=== PATIENT | male | born 1960 | race Caucasian/White ===

== ENCOUNTER 2019-09-20 09:58 | Inpatient (IN) | payer OTHER ==
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
--- NOTE | 2019-09-20 11:10 | HP ---
COWS - Scale Resting Pulse: 0= [place] 80 or Below Sweatin=Flushed/Facial Moisture Restless Observation: 0= Sits Still Pupil Size: 0= Normal to Room Light Bone or Joint Aches: 1= Mild Discomfort Runny Nose/ Eye Tearin= Nasal Congestion GI Upset > 30mins: 1= Stomach Cramp Tremor Observation: 2= Slight Tremor Visible Yawning Observation: 0= None Anxiety or Irritability: 2=Irritable/Anxious Goose Flesh Skin: 0=Smooth Skin COWS Score: 9 CIWA Score Nausea/Vomitin-Mild Nausea/No Vomiting Muscle Tremors: 3 Anxiety: 3 Agitation: 0-Normal Activity Paroxysmal Sweats: 2 Orientation: 2-Disoriented Date<2 days Tacttile Disturbances: 0-None Auditory Disturbances: 2-Mild Harshness/Frighten Visual Disturbances: 2-Mild Sensitivity Headache: 0-None Present CIWA-Ar Total Score: 15 - Admission Criteria [facility] Guidelines: Admission for Medically Managed Detox: Requires at least one of the followin. CIWA greater than 12 2. Seizures within the past 24 hours 3. Delirium tremens within the past 24 hours 4. Hallucinations within the past 24 hours 5. Acute intervention needed for co occurring medical disorder 6. Acute intervention needed for co occurring psychiatric disorder 7. Severe withdrawal that cannot be handled at a lower level of care (continued vomiting, continued diarrhea, abnormal vital signs) requiring intravenous medication and/or fluids 8. Patient presents the following: CIWA greater than 12 Admission Criteria Met: Admission criteria met Admitting History and Physical - Admission Chief Complaint: Patient is a 59 year old male with history of arthritis, back pain, depression, alcohol use disorder, opiate use disorder, cocaine dependence, presents for detox. History of Present Illness: Patient is a 59 year old male with history of arthritis, back pain, depression, alcohol use disorder, opiate use disorder, cocaine dependence, presents for detox. This is patient's first visit at this facility. Last detox approx one year ago at [facility] in [place]. Endorses prior rehab approx 5 years ago, does not recall facility. PMH: arthritis, sciaticca, back pain, ?hepatitis C (endorses he completed treatment) PSH: denies Social: lives with mother in apartment, in [place]. Psych: depression Legal: denies - Substance Use History Alcohol Substance amount: 1-2 pints Vodka Frequency of use: Daily Substance route: Oral Date of Last Use: 09/19/19 Heroin Substance amount: 1-2 bundles Frequency of use: Daily Substance route: Inhalation (ex: sniffing or snorting), Injection (ex: intravenous or skin popping) Date of Last Use: 09/19/19 Cocaine- Powder Substance amount: $100 Frequency of use: Daily Substance route: Inhalation (ex: sniffing or snorting), Injection (ex: intravenous or skin popping) Date of Last Use: 09/19/19 OxyContin Substance amount: 10 mg Frequency of use: Daily Substance route: Oral (t-1) History Source: Patient Limitations to Obtaining History: No Limitations - Past Medical History Musculoskeletal: Yes: Other (Arthritis, Sciattica) - Past Surgical History Past Surgical History: Yes: None - Smoking History Smoking history: Current every day smoker Have you smoked in the past 12 months: Yes Aproximately how many cigarettes per day: 10 - Alcohol/Substance Use Hx Alcohol Use: Yes History of Substance Use: reports: Cocaine, Heroin, Tranquilizers - Social History Usual Living Arrangement: Yes: With Parent History of Recent Travel: No Admission ROS [facility] - [facility] Chief Complaint: Patient is a 59 year old male with history of arthritis, back pain, depression, alcohol use disorder, opiate use disorder, cocaine dependence, presents for detox. Exam Limitations: No Limitations - Ebola screening Have you traveled outside of the country in the last 21 days: No Have you been sick,other than usual withdrawal symptoms: No Do you have a fever: No - Review of Systems Constitutional: No Symptoms Reported EENT: denies: Blurred Vision, Hearing Loss Respiratory: denies: Cough, Shortness of Breath Cardiac: denies: Chest Pain, Palpitations GI: denies: Nausea, Vomiting, Abdominal cramping : denies: Burning, Dysuria Musculoskeletal: reports: Back Pain (chronic) Integumentary: denies: Lesions, Rash Neuro: reports: Other (diffuse myalgias). denies: Numbness Hematology: denies: Blood Clots, Easy Bleeding Psychiatric: reports: Depressed, other (denies suicidal/ homicidal ideation) Patient History - Patient Medical History Hx Anemia: No Hx Asthma: No Hx Chronic Obstructive Pulmonary Disease (COPD): No Hx Cancer: No Hx Cardiac Disorders: No Hx Congestive Heart Failure: No Hx Hypertension: No Hx Hypercholesterolemia: No Hx Pacemaker: No HX Cerebrovascular Accident: No Hx Seizures: Yes (secondary to withdrawal) Hx Dementia: No Hx Diabetes: No Hx Gastrointestinal Disorders: No Hx Liver Disease: No Hx Genitourinary Disorders: No Hx Sexually Transmitted Disorders: Yes (syphillis) Hx Renal Disease (ESRD): No Hx Thyroid Disease: No Hx Human Immunodeficiency Virus (HIV): No Hx Hepatitis C: Yes (received treatment) Hx Depression: Yes Hx Suicide Attempt: Yes (2017, IV drug overdose) Hx Bipolar Disorder: No Hx Schizophrenia: No - Patient Surgical History Past Surgical History: No - PPD History Previous Implant?: Yes Documented Results: Negative w/o proof Implanted On Prior [facility] Admission?: No PPD to be Administered?: Yes - Reproductive History Patient is a Female of Child Bearing Age (11 -55 yrs old): No - Smoking Cessation Smoking history: Current every day smoker Have you smoked in the past 12 months: Yes Aproximately how many cigarettes per day: 10 Hx Chewing Tobacco Use: No Initiated information on smoking cessation: Yes 'Breaking Loose' booklet given: 09/20/19 - Substance & Tx. History Hx Alcohol Use: Yes Hx Substance Use: Yes Substance Use Type: Alcohol, Cocaine, Heroin, Opiates, Tranquilizers Hx Substance Use Treatment: Yes - Substances abused Alcohol Substance route: Oral Frequency: Daily Amount used: 1-2 pint vodka Age of first use: 15 Date of last use: 09/19/19 Heroin Substance route: Injection Frequency: Daily Amount used: 1-2 bundles Age of first use: 16 Date of last use: 09/19/19 Cocaine Substance route: Smoking Frequency: Daily Amount used: $100 Age of first use: 16 Date of last use: 09/19/19 Oxycontin Substance route: Oral Frequency: 1-3 times last 30 days Amount used: 10mg Age of first use: 59 Date of last use: 09/19/19 Admission Physical Exam BHS - Physical General Appearance: Yes: Within Normal Limits, Other (left eyelid sliht drooping compared to right- patient believes this is chronic finding.) HEENTM: Yes: EOMI, Normocephalic, MERRILL Respiratory: Yes: Normal Breath Sounds, No Respiratory Distress, No Accessory Muscle Use Neck: Yes: Supple Breast: Yes: Breast Exam Deferred Cardiology: Yes: Regular Rhythm, Regular Rate, S1, S2 Abdominal: Yes: Normal Bowel Sounds, Non Tender, Flat, Soft Extremities: Yes: Within Normal Limits, Normal Range of Motion Neurological: Yes: Within Normal Limits, Alert, Normal Response Integumentary: Yes: Dry, Warm - Diagnostic (1) Alcohol dependence with withdrawal, uncomplicated Current Visit: Yes Status: Acute (2) Opioid dependence with withdrawal Current Visit: Yes Status: Acute (3) Cocaine dependence Current Visit: No Status: Chronic Qualifiers: Substance use status: uncomplicated Qualified Code(s): F14.20 - Cocaine dependence, uncomplicated (4) Benzodiazepine abuse Current Visit: No Status: Chronic (5) Nicotine dependence Current Visit: No Status: Chronic Qualifiers: Nicotine product type: cigarettes Substance use status: uncomplicated Qualified Code(s): F17.210 - Nicotine dependence, cigarettes, uncomplicated (6) Depression Current Visit: No Status: Chronic Qualifiers: Depression Type: unspecified Qualified Code(s): F32.9 - Major depressive disorder, single episode, unspecified Cleared for Admission [facility] - Detox or Rehab [facility] Level of Care: Medically Managed Detox Regimen/Protocol: Methadone/Librium Claeared for Rehab Admission: No Screened but not Admitted - Documentation of Visit Screened but not Admitted: No Breathalyzer - Breathalyzer Breathalyzer: 0 Urine Drug Screen - Test Device Lot number: [id number] Expiration date: 09/09/21 - Control Is test valid?: Yes - Results Drug screen NEGATIVE: No Urine drug screen results: NAIN-Cocaine, FEN-Fentanyl, MOP-Opiates, OXY- Oxycodone, MTD-Methadone, BZO-Benzodiazepines Inpatient Rehab Admission - Rehab Decision to Admit Inpatient rehab admission?: No
[2019-09-20] MEDS ORDERED: BISMUTH SUBSALICYLATE 262 MG/15 ML BTL PO PRN (11:23)
[2019-09-20] MEDS ORDERED: ONDANSETRON *ODT* 4 MG TABLET SL PRN (11:26)
[2019-09-20] MEDS ORDERED: cloNIDine HCL 0.1 MG TABLET PO PRN (11:26)
[2019-09-20] MEDS ORDERED: METHOCARBAMOL 500 MG TABLET PO PRN (11:26)
[2019-09-20] MEDS ORDERED: chlordiazePOXIDE HCL 25 MG CAPSULE PO PRN (11:26)
[2019-09-20] MEDS ORDERED: MENTHOL/PHENOL 1 EACH UD MM PRN (11:26)
[2019-09-20] MEDS ORDERED: NICOTINE POLACRILEX 2 MG GUM BUC PRN (11:26)
[2019-09-20] MEDS ORDERED: ACETAMINOPHEN 325 MG TABLET (FP) PO PRN (11:26)
[2019-09-20] MEDS ORDERED: MAG HYDROX/AL HYDROX/SIMETH 30 ML UNIT-DOSE CUP PO PRN (11:26)
[2019-09-20] MEDS ORDERED: METHADONE HCL 10 MG TABLET (FOR DETOX USE ONLY) PO ONE (11:26)
[2019-09-20] MEDS ORDERED: MAGNESIUM CITRATE 300 ML BOTTLE PO PRN (11:26)
[2019-09-20 11:39] VITALS: BMI 28.7
[2019-09-20] MEDS: NICOTINE 14 MG/24 HOURS TOPICAL PATCH TD SCH (12:40)
[2019-09-20] MEDS: hydrOXYzine PAMOATE 25 MG CAPSULE (FP) PO SCH ×3 (14:21→22:04)
[2019-09-20 15:13] LABS: HEMATOCRIT 27.3 % (35.4-49); HEMOGLOBIN 8.7 GM/dL (11.7-16.9); MCH 23.4 pg (25.7-33.7); MCHC 31.8 g/dl (32.0-35.9); MEAN CELL VOLUME 73.7 fl (80-96); MEAN PLT VOLUME 8.4 fl (7.5-11.1); PLATELET COUNT 283 K/MM3 (134-434); RBC 3.71 M/mm3 (4.00-5.60); WHITE BLOOD COUNT 3.8 K/mm3 (4.0-10.0)
[2019-09-20 15:26] LABS: ALBUMIN 3.3 g/dl (3.4-5.0); BILIRUBIN,TOTAL 0.8 mg/dL (0.2-1); BLOOD UREA NITROGEN 18.8 mg/dL (7-18); CALCIUM 8.8 mg/dL (8.5-10.1); CREATININE 0.8 mg/dL (0.55-1.3); POTASSIUM 3.9 mmol/L (3.5-5.1); TOT PROT 8.2 g/dl (6.4-8.2)
--- NOTE | 2019-09-20 15:35 | PN ---
Teaching Attending Note Name of Resident: Tree Damon ATTENDING PHYSICIAN STATEMENT I saw and evaluated the patient. I reviewed the resident's note and discussed the case with the resident. I agree with the resident's findings and plan as documented. SUBJECTIVE: OBJECTIVE: ASSESSMENT AND PLAN: 1. Alcohol use disorder, in withdrawal 2. Opioid use disoder, in withdrawal Plan 1. Librium detox protocol 2. Methadone detox protocol
--- NOTE | 2019-09-20 15:46 | EKG ---
Test Reason : Blood Pressure : / mmHG Vent. Rate : 055 BPM Atrial Rate : 055 BPM P-R Int : 178 ms QRS Dur : 094 ms QT Int : 442 ms P-R-T Axes : 051 025 040 degrees QTc Int : 422 ms SINUS BRADYCARDIA MODERATE VOLTAGE CRITERIA FOR LVH, MAY BE NORMAL VARIANT BORDERLINE ECG NO PREVIOUS ECGS AVAILABLE Confirmed by RANDI MORA MD ([id number]) on 09/20/2019 3:46:27 PM Referred By: Confirmed By:RANDI MORA MD
[2019-09-20] MEDS: chlordiazePOXIDE HCL 25 MG CAPSULE PO SCH ×2 (17:27→22:03)
[2019-09-20] MEDS: IBUPROFEN 400 MG TABLET (FP) PO PRN (22:01)
[2019-09-20] MEDS: THIAMINE HCL 100 MG TABLET (FP) PO SCH (22:04)
[2019-09-20] MEDS: MELATONIN 5 MG TABLETS PO SCH (22:06)
[2019-09-21] MEDS: chlordiazePOXIDE HCL 25 MG CAPSULE PO SCH ×4 (06:25→23:15)
[2019-09-21] MEDS: hydrOXYzine PAMOATE 25 MG CAPSULE (FP) PO SCH ×2 (06:25→11:06)
[2019-09-21] MEDS ORDERED: METHADONE HCL 5 MG TABLET (FOR DETOX USE ONLY) ONE (09:48)
[2019-09-21] MEDS ORDERED: METHADONE HCL 10 MG TABLET (FOR DETOX USE ONLY) ONE (09:48)
[2019-09-21] MEDS ORDERED: METHADONE (DETOX) 20 MG, METHADONE (DETOX) 5 MG PO ONE (10:00)
[2019-09-21] MEDS: NICOTINE 14 MG/24 HOURS TOPICAL PATCH TD SCH (11:06)
[2019-09-21] MEDS: PRENATAL VITAMINS W/ FOLIC ACID TABLET (FP) PO SCH (11:06)
[2019-09-21] MEDS: MAGNESIUM HYDROX 2400MG/30ML ORAL SUSPENSION 30 ML CUP PO PRN ×2 (11:07→19:39)
--- NOTE | 2019-09-21 11:44 | PN ---
[facility] CIWA - CIWA Score Nausea/Vomitin-No Nausea/No Vomiting Muscle Tremors: None Anxiety: 3 Agitation: 1-Slight > Activity Paroxysmal Sweats: 3 Orientation: 0-Oriented Tacttile Disturbances: 0-None Auditory Disturbances: 0-None Visual Disturbances: 0-None Headache: 2-Mild CIWA-Ar Total Score: 9 S COWS - Scale Resting Pulse: 1= [place] 81-100 Sweatin= Beads of Sweat on Face Restless Observation: 1= Difficult to Sit Still Pupil Size: 0= Normal to Room Light Bone or Joint Aches: 2= Severe Diffuse Aches Runny Nose/ Eye Tearin= None GI Upset > 30mins: 0= None Tremor Observation of Outstretched Hands: 0= None Yawning Observation: 1= 1-2x During Session Anxiety or Irritability: 2=Irritable/Anxious Goose Flesh Skin: 0=Smooth Skin COWS Score: 10 S Progress Note (SOAP) Subjective: c/o sweats, anxiety, irritability, headache, and muscle aches. Objective: 09/21/19 11:43 Vital Signs 09/21/19 09/21/19 05:57 11:07 Temperature 97.8 F 97.1 F L Pulse Rate 72 59 L Respiratory 18 18 Rate Blood Pressure 117/64 134/76 O2 Sat by Pulse 97 Oximetry (%) Laboratory Last Values WBC 3.8 K/mm3 (4.0-10.0) L 09/20/19 11:20 RBC 3.71 M/mm3 (4.00-5.60) L 09/20/19 11:20 Hgb 8.7 GM/dL (11.7-16.9) L 09/20/19 11:20 Hct 27.3 % (35.4-49) L 09/20/19 11:20 MCV 73.7 fl (80-96) L 09/20/19 11:20 MCH 23.4 pg (25.7-33.7) L 09/20/19 11:20 MCHC 31.8 g/dl (32.0-35.9) L 09/20/19 11:20 RDW 18.0 % (11.9-15.9) H 09/20/19 11:20 Plt Count 283 K/MM3 (134-434) 09/20/19 11:20 MPV 8.4 fl (7.5-11.1) 09/20/19 11:20 Sodium 137 mmol/L (136-145) 09/20/19 11:20 Potassium 3.9 mmol/L (3.5-5.1) 09/20/19 11:20 Chloride 104 mmol/L (98-107) 09/20/19 11:20 Carbon Dioxide 25 mmol/L (21-32) 09/20/19 11:20 Anion Gap 8 MMOL/L (8-16) 09/20/19 11:20 BUN 18.8 mg/dL (7-18) H 09/20/19 11:20 Creatinine 0.8 mg/dL (0.55-1.3) 09/20/19 11:20 Est GFR (CKD-EPI)AfAm 112.53 09/20/19 11:20 Est GFR (CKD-EPI)NonAf 97.10 09/20/19 11:20 Random Glucose 96 mg/dL (74-106) 09/20/19 11:20 Calcium 8.8 mg/dL (8.5-10.1) 09/20/19 11:20 Total Bilirubin 0.8 mg/dL (0.2-1) 09/20/19 11:20 AST 38 U/L (15-37) H 09/20/19 11:20 ALT 21 U/L (13-61) 09/20/19 11:20 Alkaline Phosphatase 57 U/L (45-117) 09/20/19 11:20 Total Protein 8.2 g/dl (6.4-8.2) 09/20/19 11:20 Albumin 3.3 g/dl (3.4-5.0) L 09/20/19 11:20 Syphilis Serology Reactive (NONREACTIVE) A* 09/20/19 11:20 COVID-19 (EDUARD) Not detected (Not Detected) 09/20/19 12:45 HIV Ag/Ab Combo Qual Negative (NEGATIVE) 09/20/19 12:00 Labs noted. Assessment: 09/21/19 11:44 AOX3 and in no acute respiratory distress. Full ROM, ambulating in the unit. Withdrawal symptoms. Plan: continue detox.
[2019-09-21] MEDS ORDERED: hydrOXYzine PAMOATE 25 MG CAPSULE (FP) PO PRN (12:32)
--- NOTE | 2019-09-21 14:18 | CONSULT ---
[facility] Psychiatric Consult - Data Date of interview: 09/21/19 Admission source: [facility] Identifying data: First visit to [facility] and admission to [address] [place] [address] for this 59 y/o male self-referred for detoxification treatment. MATTHIEU issues : heroin, cocaine, alcohol, nicotine. Patient is single, no dependents, domiciled, disabled (uses a cane for ambulation) and supported on [facility] benefits. Substance Abuse History: Discussed with the patient. MATTHIEU profile as follows : Alcohol. Substance amount: 1-2 pints Vodka. Frequency of use: Daily. Substance route: Oral. Date of Last Use: 09/19/19. Heroin. Substance amount: 1-2 bundles. Frequency of use: Daily. Substance route: Inhalation (ex: sniffing or snorting), Injection (ex: intravenous or skin popping). Date of Last Use: 09/19/19. Cocaine- Powder. Substance amount: $100. Frequency of use: Daily. Substance route: Inhalation (ex: sniffing or snorting), Injection (ex: intravenous or skin popping). Date of Last Use: 09/19/19. OxyContin. Substance amount: 10 mg. Frequency of use: Daily. Substance route: Oral (t-1). History Source: Patient. Limitations to Obtaining History: No Limitations. Smoking history: Current every day smoker. Have you smoked in the past 12 karen hs: Yes. Aproximately how many cigarettes per day: 10. Hx Chewing Tobacco Use: No. Initiated information on smoking cessation: Yes. 'Breaking Loose' booklet given: 09/20/19. - Substance & Tx. History. Hx Alcohol Use: Yes. Hx Substance Use: Yes. Substance Use Type: Alcohol, Cocaine, Heroin, Opiates, Tranquilizers. Hx Substance Use Treatment: Yes. - Substances abused. Alcohol. Substance route: Oral. Frequency: Daily. Amount used: 1-2 pint vodka. Age of first use: 15. Date of last use: 09/19/19. Heroin. Substance route: Injection. Frequency: Daily. Amount used: 1-2 bundles. Age of first use: 16. Date of last use: 09/19/19. Cocaine. Substance route: Smoking. Frequency: Daily. Amount used: $100. Age of first use: 16. Date of last use: 09/19/19. Oxycontin. Substance route: Oral. Frequency: 1-3 times last 30 days. Amount used: 10mg. Age of first use: 59. Date of last use: 09/19/19. History of multiple MATTHIEU treatment failures. Medical History: Medical history is remarkable for syphillis, hepatitis C (treated), chronic lumbar pain and distant antecedent of withdrawal-related seizures. No known allergies. Psychiatric History: Patient denies history of psychiatric hospitalizations, OPD care or suicide attempts. Physical/Sexual Abuse/Trauma History: Patient denies. Additional Comment: Urine drug screen results: NAIN-Cocaine, FEN-Fentanyl, MOP- Opiates, OXY-Oxycodone, MTD-Methadone, BZO-Benzodiazepines. Noted. Mental Status Exam - Mental Status Exam Alert and Oriented to: Time, Place, Person Cognitive Function: Good Patient Appearance: Unkempt, Disheveled Mood: Withdrawn Affect: Mood Congruent, Constricted Patient Behavior: Fatigued, Appropriate, Cooperative Speech Pattern: Clear, Appropriate Voice Loudness: Normal Thought Process: Intact, Goal Oriented Thought Disorder: Not Present Hallucinations: Denies Suicidal Ideation: Denies Homicidal Ideation: Denies Insight/Judgement: Poor Sleep: Well Appetite: Good Gait/Station: Other (not out of bed in headline writer's presence; cane noted at bedside) Psychiatric Findings - Problem List (Sims 1, 2,3) (1) Alcohol dependence with withdrawal, uncomplicated Current Visit: Yes Status: Acute (2) Opioid dependence with withdrawal Current Visit: Yes Status: Acute (3) Benzodiazepine abuse Current Visit: Yes Status: Chronic (4) Cocaine dependence Current Visit: Yes Status: Chronic Qualifiers: Substance use status: uncomplicated Qualified Code(s): F14.20 - Cocaine dependence, uncomplicated (5) Nicotine dependence Current Visit: Yes Status: Chronic Qualifiers: Nicotine product type: cigarettes Substance use status: uncomplicated Qualified Code(s): F17.210 - Nicotine dependence, cigarettes, uncomplicated - Initial Treatment Plan Initial Treatment Plan: Psychoeducation. Sleep hygiene. Detoxification. Support. Observation.
[2019-09-21] MEDS: THIAMINE HCL 100 MG TABLET (FP) PO SCH (23:14)
[2019-09-21] MEDS: MELATONIN 5 MG TABLETS PO SCH (23:14)
[2019-09-22] MEDS: chlordiazePOXIDE HCL 25 MG CAPSULE PO SCH ×4 (06:12→23:21)
[2019-09-22] MEDS: IBUPROFEN 400 MG TABLET (FP) PO PRN (06:14)
[2019-09-22] MEDS ORDERED: METHADONE HCL 10 MG TABLET (FOR DETOX USE ONLY) PO ONE (10:00)
[2019-09-22] MEDS: NICOTINE 14 MG/24 HOURS TOPICAL PATCH TD SCH (10:51)
[2019-09-22] MEDS: PRENATAL VITAMINS W/ FOLIC ACID TABLET (FP) PO SCH (10:52)
[2019-09-22] MEDS: ACETAMINOPHEN 325 MG TABLET (FP) PO PRN (10:55)
--- NOTE | 2019-09-22 14:05 | PN ---
S CIWA - CIWA Score Nausea/Vomitin-Mild Nausea/No Vomiting Muscle Tremors: 2 Anxiety: 2 Agitation: 1-Slight > Activity Paroxysmal Sweats: No Perspiration Orientation: 0-Oriented Tacttile Disturbances: 0-None Auditory Disturbances: 0-None Visual Disturbances: 2-Mild Sensitivity Headache: 0-None Present CIWA-Ar Total Score: 8 S COWS - Scale Resting Pulse: 0= [place] 80 or Below Sweatin= Chills/Flushing Restless Observation: 0= Sits Still Pupil Size: 1= Pupils >than Normal Bone or Joint Aches: 1= Mild Discomfort Runny Nose/ Eye Tearin= None GI Upset > 30mins: 1= Stomach Cramp Tremor Observation of Outstretched Hands: 2= Slight Tremor Visible Yawning Observation: 0= None Anxiety or Irritability: 2=Irritable/Anxious Goose Flesh Skin: 0=Smooth Skin COWS Score: 8 [facility] Progress Note (SOAP) Subjective: 59 years old male first detox admission to [facility] was admitted on 09/20/19 for alcohol and opiate withdrawal sx management ambulating with cane slow steady ate breakfast in room unable to eat lunch due to right inguinal hernia 10/10 [address] mr mallory states that the pain began "months" ago gradually increase pain had "little" bowel movement this morning current pain is "unbearable" right inguinal hernia protrusion unable to manually reduced due to tenderness mr mallory states that "I want the surgery" case discussed with the nurse ER evaluation is necessary at this time information provided to Dr Francis Objective: 09/22/19 14:29 Vital Signs - 24 hr 09/21/19 09/21/19 09/21/19 16:58 18:56 20:44 Temperature 98 F 97.3 F L Pulse Rate 45 L 60 56 L Respiratory 17 18 18 Rate Blood Pressure 101/55 L 135/81 O2 Sat by Pulse 99 Oximetry (%) 09/22/19 09/22/19 09/22/19 07:23 08:41 13:06 Temperature 97.7 F 97.1 F L 97.6 F Pulse Rate 51 L 58 L 54 L Respiratory 16 18 18 Rate Blood Pressure 121/76 141/77 146/82 O2 Sat by Pulse 97 99 Oximetry (%) Laboratory Tests 09/20/19 09/20/19 09/20/19 11:20 11:20 11:20 WBC 3.8 L RBC 3.71 L Hgb 8.7 L Hct 27.3 L MCV 73.7 L MCH 23.4 L MCHC 31.8 L RDW 18.0 H Plt Count 283 MPV 8.4 Sodium 137 Potassium 3.9 Chloride 104 Carbon Dioxide 25 Anion Gap 8 BUN 18.8 H Creatinine 0.8 Est GFR (CKD-EPI)AfAm 112.53 Est GFR (CKD-EPI)NonAf 97.10 Random Glucose 96 Calcium 8.8 Total Bilirubin 0.8 AST 38 H ALT 21 Alkaline Phosphatase 57 Total Protein 8.2 Albumin 3.3 L Syphilis Serology Reactive A* RPR Titer COVID-19 (EDUARD) HIV Ag/Ab Combo Qual 09/20/19 09/20/19 09/20/19 11:20 12:00 12:45 WBC RBC Hgb Hct MCV MCH MCHC RDW Plt Count MPV Sodium Potassium Chloride Carbon Dioxide Anion Gap BUN Creatinine Est GFR (CKD-EPI)AfAm Est GFR (CKD-EPI)NonAf Random Glucose Calcium Total Bilirubin AST ALT Alkaline Phosphatase Total Protein Albumin Syphilis Serology RPR Titer Reactive 1:1 H COVID-19 (EDUARD) Not detected HIV Ag/Ab Combo Qual Negative anemia ferrous sulfate syphilis contacted treated Assessment: 09/22/19 14:32 alcohol and opiate withdrawal Plan: librium and methadone regiments
[2019-09-22] MEDS: FERROUS SO4 325 MG TABLET (FP) PO SCH (18:21)
[2019-09-22] MEDS: THIAMINE HCL 100 MG TABLET (FP) PO SCH (23:22)
[2019-09-22] MEDS: MELATONIN 5 MG TABLETS PO SCH (23:26)
[2019-09-23] MEDS ORDERED: chlordiazePOXIDE HCL 10 MG CAPSULE PO PRN
[2019-09-23] MEDS: chlordiazePOXIDE HCL 10 MG CAPSULE PO SCH ×4 (06:38→22:51)
[2019-09-23] MEDS: IBUPROFEN 400 MG TABLET (FP) PO PRN ×2 (06:40→20:13)
[2019-09-23] MEDS: FERROUS SO4 325 MG TABLET (FP) PO SCH ×2 (07:33→18:08)
[2019-09-23] MEDS ORDERED: METHADONE HCL 5 MG TABLET (FOR DETOX USE ONLY) ONE (09:53)
[2019-09-23] MEDS ORDERED: METHADONE HCL 10 MG TABLET (FOR DETOX USE ONLY) ONE (09:53)
[2019-09-23] MEDS ORDERED: METHADONE (DETOX) 10 MG, METHADONE (DETOX) 5 MG PO ONE (10:00)
[2019-09-23] MEDS: NICOTINE 14 MG/24 HOURS TOPICAL PATCH TD SCH (10:48)
[2019-09-23] MEDS: PRENATAL VITAMINS W/ FOLIC ACID TABLET (FP) PO SCH (10:48)
--- NOTE | 2019-09-23 11:54 | PN ---
[facility] CIWA - CIWA Score Nausea/Vomitin-Mild Nausea/No Vomiting Muscle Tremors: 1-None Visible, but [place] Anxiety: 1-Mildly Anxious Agitation: 0-Normal Activity Paroxysmal Sweats: No Perspiration Orientation: 0-Oriented Tacttile Disturbances: 1-Very Mild Itch/Numbness Auditory Disturbances: 0-None Visual Disturbances: 1-Very Mild Sensitivity Headache: 0-None Present CIWA-Ar Total Score: 5 S COWS - Scale Resting Pulse: 0= SD 80 or Below Sweatin= No chills or Flushing Restless Observation: 0= Sits Still Pupil Size: 1= Pupils >than Normal Bone or Joint Aches: 1= Mild Discomfort Runny Nose/ Eye Tearin= None GI Upset > 30mins: 1= Stomach Cramp Tremor Observation of Outstretched Hands: 1= Tremor [place], Not Seen Yawning Observation: 0= None Anxiety or Irritability: 1=Feels Anxious/Irritable Goose Flesh Skin: 0=Smooth Skin COWS Score: 5 S Progress Note (SOAP) Subjective: 59 years old male admitted on 09/20/19 for alcohol and opiate withdrawal sx management treating with librium and methadone detox regiment ambulating with cane from bed to bathroom slow steady mr mallory was angry that he been sent back so soon no surgery no morphine due to ct negative acute process to left inguinal hernia strong recommend mr mallory return to surgeon after detox completed Objective: 09/23/19 11:58 Vital Signs - 24 hr 09/22/19 09/22/19 09/23/19 13:06 22:29 06:52 Temperature 97.6 F 97.3 F L 97.1 F L Pulse Rate 54 L 49 L 54 L Respiratory 18 17 18 Rate Blood Pressure 146/82 153/76 118/70 O2 Sat by Pulse 99 100 98 Oximetry (%) 09/23/19 08:46 Temperature 97.3 F L Pulse Rate 55 L Respiratory 16 Rate Blood Pressure 131/67 O2 Sat by Pulse Oximetry (%) Laboratory Tests 09/20/19 09/20/19 09/20/19 11:20 11:20 11:20 WBC 3.8 L RBC 3.71 L Hgb 8.7 L Hct 27.3 L MCV 73.7 L MCH 23.4 L MCHC 31.8 L RDW 18.0 H Plt Count 283 MPV 8.4 Sodium 137 Potassium 3.9 Chloride 104 Carbon Dioxide 25 Anion Gap 8 BUN 18.8 H Creatinine 0.8 Est GFR (CKD-EPI)AfAm 112.53 Est GFR (CKD-EPI)NonAf 97.10 Random Glucose 96 Calcium 8.8 Total Bilirubin 0.8 AST 38 H ALT 21 Alkaline Phosphatase 57 Total Protein 8.2 Albumin 3.3 L Syphilis Serology Reactive A* RPR Titer COVID-19 (EDUARD) HIV Ag/Ab Combo Qual 09/20/19 09/20/19 09/20/19 11:20 12:00 12:45 WBC RBC Hgb Hct MCV MCH MCHC RDW Plt Count MPV Sodium Potassium Chloride Carbon Dioxide Anion Gap BUN Creatinine Est GFR (CKD-EPI)AfAm Est GFR (CKD-EPI)NonAf Random Glucose Calcium Total Bilirubin AST ALT Alkaline Phosphatase Total Protein Albumin Syphilis Serology RPR Titer Reactive 1:1 H COVID-19 (EDUARD) Not detected HIV Ag/Ab Combo Qual Negative syphilis contacted treated Assessment: 09/23/19 11:59 alcohol and opiate withdrawal Plan: librium and methadone regiments
[2019-09-23] MEDS: ACETAMINOPHEN 325 MG TABLET (FP) PO PRN (16:04)
[2019-09-23] MEDS: MAGNESIUM HYDROX 2400MG/30ML ORAL SUSPENSION 30 ML CUP PO PRN (20:28)
[2019-09-23] MEDS: THIAMINE HCL 100 MG TABLET (FP) PO SCH (22:51)
[2019-09-23] MEDS: MELATONIN 5 MG TABLETS PO SCH (22:59)
[2019-09-24] MEDS ORDERED: chlordiazePOXIDE HCL 10 MG CAPSULE PO SCH (05:00)
[2019-09-24 10:00] VITALS: BP 106/61; PULSE 55; TEMP 97.1
[2019-09-24] MEDS ORDERED: METHADONE HCL 10 MG TABLET (FOR DETOX USE ONLY) PO ONE (10:00)
[2019-09-24] MEDS: FERROUS SO4 325 MG TABLET (FP) PO SCH (10:26)
[2019-09-24] MEDS: PRENATAL VITAMINS W/ FOLIC ACID TABLET (FP) PO SCH (10:26)
[2019-09-24] MEDS: NICOTINE 14 MG/24 HOURS TOPICAL PATCH TD SCH (10:27)
--- NOTE | 2019-09-24 13:39 | DS ---
[facility] Detox Discharge Summary Admission Date: 09/20/19 Discharge Date: 09/24/19 - History Present History: Alcohol Dependence, Opioid Dependence Additional Comments: 59 years old male was admitted on 09/20/19 for alcohol and opiate withdrawal sx management treated with librium and methadone detox regiments seen by psychiatrist no medical intervention history of left inguinal hernia c/o unbearable pain transferred to ER negative acute process of left inguinal hernia return to [facility] for detox mr mallory requests "[facility]" as aftercare for "smooth transition" from detox encourage mr mallory call [facility] for appointment General Appearance: Yes: Within Normal Limits, Other (left eyelid sliht drooping compared to right- patient believes this is chronic finding.) HEENTM: Yes: EOMI, Normocephalic, [place] Respiratory: Yes: Normal Breath Sounds, No Respiratory Distress, No Accessory Muscle Use Neck: Yes: Supple Breast: Yes: Breast Exam Deferred Cardiology: Yes: Regular Rhythm, Regular Rate, S1, S2 Abdominal: Yes: Normal Bowel Sounds, Non Tender, Flat, Soft Extremities: Yes: Within Normal Limits, Normal Range of Motion Neurological: Yes: Within Normal Limits, Alert, Normal Response Integumentary: Yes: Dry, Warm Pertinent Past History: time for discharge 42 minutes treatment team met with mr mallory to discuss benefits of librium and methadone regiment completion mr mallory prefers preparing to [facility] for alcohol and opiate recovery today mr mallory wants to leave the detox today instead of estimated discharge day of 09/25/19 - Physical Exam Results Vital Signs: Vital Signs Temperature 97.1 F L 09/24/19 08:39 Pulse Rate 55 L 09/24/19 08:39 Respiratory Rate 16 09/24/19 08:39 Blood Pressure 106/61 09/24/19 08:39 O2 Sat by Pulse Oximetry (%) 97 09/24/19 08:39 Pertinent Admission Physical Exam Findings: alcohol and opiate withdrawal Laboratory Tests 09/20/19 09/20/19 09/20/19 11:20 11:20 11:20 WBC 3.8 L RBC 3.71 L Hgb 8.7 L Hct 27.3 L MCV 73.7 L MCH 23.4 L MCHC 31.8 L RDW 18.0 H Plt Count 283 MPV 8.4 Sodium 137 Potassium 3.9 Chloride 104 Carbon Dioxide 25 Anion Gap 8 BUN 18.8 H Creatinine 0.8 Est GFR (CKD-EPI)AfAm 112.53 Est GFR (CKD-EPI)NonAf 97.10 Random Glucose 96 Calcium 8.8 Total Bilirubin 0.8 AST 38 H ALT 21 Alkaline Phosphatase 57 Total Protein 8.2 Albumin 3.3 L Syphilis Serology Reactive A* RPR Titer COVID-19 (EDUARD) HIV Ag/Ab Combo Qual 09/20/19 09/20/19 09/20/19 11:20 12:00 12:45 WBC RBC Hgb Hct MCV MCH MCHC RDW Plt Count MPV Sodium Potassium Chloride Carbon Dioxide Anion Gap BUN Creatinine Est GFR (CKD-EPI)AfAm Est GFR (CKD-EPI)NonAf Random Glucose Calcium Total Bilirubin AST ALT Alkaline Phosphatase Total Protein Albumin Syphilis Serology RPR Titer Reactive 1:1 H COVID-19 (EDUARD) Not detected HIV Ag/Ab Combo Qual Negative lab noted syphilis contacted treated - Treatment Hospital Course: Detox Protocol Followed, Detoxed Safely, Responded well, Discharged Condition Good, Rehab Referral Accepted Patient has Accepted a Rehab Referral to: [facility] - Medication Discharge Medications: Ambulatory Orders Gabapentin [Neurontin] 600 mg PO DAILY 09/20/19 - Diagnosis (1) Left inguinal hernia Status: Chronic (2) Alcohol dependence with withdrawal, uncomplicated Status: Acute (3) Opioid dependence with withdrawal Status: Acute (4) Syphilis contact, treated Status: Chronic (5) Nicotine dependence Status: Acute Qualifiers: Nicotine product type: cigarettes Substance use status: in withdrawal Qualified Code(s): F17.213 - Nicotine dependence, cigarettes, with withdrawal - AMA Did Patient Leave Against Medical Advice: No CIWA Score - CIWA Score Nausea/Vomitin-No Nausea/No Vomiting Muscle Tremors: 1-None Visible, but [place] Anxiety: 1-Mildly Anxious Agitation: 0-Normal Activity Paroxysmal Sweats: No Perspiration Orientation: 0-Oriented Tacttile Disturbances: 0-None Auditory Disturbances: 0-None Visual Disturbances: 0-None Headache: 0-None Present CIWA-Ar Total Score: 2 COWS (PN) - Opiate Withdrawal Resting Pulse: 0= [place] 80 or Below Sweatin= No chills or Flushing Restless Observation: 0= Sits Still Pupil Size: 0= Normal to Room Light Bone or Joint Aches: 0= None Runny Nose/ Eye Tearin= None GI Upset > 30mins: 0= None Tremor Observation of Outstretched Hands: 1= Tremor [place], Not Seen Yawning Observation: 0= None Anxiety or Irritability: 1=Feels Anxious/Irritable Goose Flesh Skin: 0=Smooth Skin COWS Score: 2
[2019-09-25] MEDS ORDERED: chlordiazePOXIDE HCL 10 MG CAPSULE PO ONE (05:00)
[2019-09-25] MEDS ORDERED: METHADONE HCL 5 MG TABLET (FOR DETOX USE ONLY) PO ONE (06:00)
== END 2019-09-24 13:48 | disposition home or self-care (01) | DRG 897 ==
LOC: YASAS 09:58 → Y3N 11:18
PROVIDERS: ADMIT Allergy & Immunology; ATTEND Allergy & Immunology
PROC: HZ2ZZZZ Detoxification Services for Substance Abuse Treatment (ICD-10-PCS; principal; 2019-09-20)
DX: F10.230 Alcohol dependence with withdrawal, uncomplicated (principal); F14.20 Cocaine dependence, uncomplicated; F11.23 Opioid dependence with withdrawal; F13.10 Sedative, hypnotic or anxiolytic abuse, uncomplicated; F17.213 Nicotine dependence, cigarettes, with withdrawal; F32.9 Major depressive disorder, single episode, unspecified; D64.9 Anemia, unspecified; K40.90 Unilateral inguinal hernia, without obstruction or gangrene, not specified as recurrent; M54.30 Sciatica, unspecified side; M54.5 Low back pain; M12.9 Arthropathy, unspecified; Z86.19 Personal history of other infectious and parasitic diseases; Z86.69 Personal history of other diseases of the nervous system and sense organs; Z99.89 Dependence on other enabling machines and devices; Z91.5 Personal history of self-harm
CPT/HCPCS: 36415; 80053; 85027; 86593; 86780; 87389; 93005; 93010; U0003

== ENCOUNTER 2019-09-22 14:39 | Emergency (ER) | payer OTHER ==
[2019-09-22 15:14] VITALS: TEMP 97.6; BMI 28.7
[2019-09-22 15:19] VITALS: BP 99/67; PULSE 66
[2019-09-22] MEDS ORDERED: morphine CARPU-JECT 2 MG/1 ML DISP.SYRIN IVPUSH ONE ×2 (15:39→17:08)
[2019-09-22] MEDS ORDERED: SODIUM CHLORIDE 1,000 ML IV STA (15:44)
[2019-09-22] MEDS ORDERED: MORPHINE SULFATE 2 MG/ML VIAL ONE ×2 (15:48→17:25)
--- NOTE | 2019-09-22 15:56 | PDOC ---
History of Present Illness - General Chief Complaint: Pain Stated Complaint: ABDOMINAL PAIN Time Seen by Provider: 09/22/19 14:52 History Source: Patient Exam Limitations: No Limitations - History of Present Illness Travel History: No Initial Comments: 09/22/19 15:51 59-year-old male sent over from [facility] for evaluation of left inguinal pain and a hernia that has been hurting him for months. Patient states has not had a bowel movement in 2 days due to the pain when exerting himself. As per [facility] providers note she tried to reduce hernia without success. Patient denies fever, chills, testicular pain or difficulty urinating. Timing/Duration: reports: constant Quality: reports: moderate, burning, sharpness Abdominal Pain Onset Location: reports: suprapubic (Left) Pain Radiation: reports: no radiation Aggravating Factors: improves with: Movement Alleviating Factors: improves with: Rest Past History - Travel History Traveled outside of the country in the last 30 days: No Close contact w/someone who was outside of country & ill: No - Medical History Allergies/Adverse Reactions: Allergies Allergy/AdvReac Type Severity Reaction Status Date / Time No Known Allergies Allergy Verified 09/22/19 15:14 Home Medications: Ambulatory Orders Gabapentin [Neurontin] 600 mg PO DAILY 09/20/19 Anemia: No Asthma: No Cancer: No Cardiac Disorders: No CVA: No COPD: No CHF: No Dementia: No Diabetes: No GI Disorders: No Disorders: No HTN: No Hypercholesterolemia: No Kidney Stones: No Liver Disease: No Seizures: Yes (secondary to withdrawal) Thyroid Disease: No - Surgical History Abdominal Surgery: No Appendectomy: No Cardiac Surgery: No Cholecystectomy: No Lung Surgery: No Neurologic Surgery: No Orthopedic Surgery: No - Reproductive History Testicular Surgery: No - Psycho-Social/Smoking History Patient Lives Alone: No Smoking History: Current every day smoker Have you smoked in the past 12 months: Yes Number of Cigarettes Smoked Daily: 10 'Breaking Loose' booklet given: 09/20/19 - Substance Abuse Hx (Audit-C & DAST Scrn) How often the patient has a drink containing alcohol: 4 0r more times/wk Number of drinks the patient has on a typical day: 7 to 9 Score: In Men: 4 or > Positive; In Women: 3 or > Positive: 7 Screen Result (Pos requires Nsg. Audit-10AR): Positive In the last yr the pt used illegal drug/Rx for NonMed reason: No Score: Yes response is considered Positive: 0 Screen Result (Positive result requires Nsg. DAST-10): Negative Abd/GI Specific PMHX - Complaint Specific PMHX Hepatitis: Yes (C- TREATED FEW MONTHS AGO) Pancreatitis: No Review of Systems - Review of Systems Able to Perform ROS?: No Is the patient limited Wolof proficient: No Constitutional: No: Symptoms Reported HEENTM: No: Symptoms Reported Respiratory: No: Symptoms reported Cardiac (ROS): No: Symptoms Reported ABD/GI: No: Symptoms Reported : No: Symptoms Reported Musculoskeletal: No: Symptoms Reported (Medical Center history is a limitation to but I go to get this done right) Integumentary: Yes: Lumps Neurological: No: Symptoms reported Endocrine: No: Symptoms Reported *Physical Exam - Vital Signs Last Vital Signs Temp Pulse Resp BP Pulse Ox 97.6 F 66 16 99/67 98 09/22/19 14:59 09/22/19 15:15 09/22/19 15:15 09/22/19 15:15 09/22/19 15:15 - Physical Exam General Appearance: Yes: Nourished, Appropriately Dressed. No: Apparent Distress HEENT: negative: Pale Conjunctivae Neck: positive: Supple Respiratory/Chest: positive: Lungs Clear, Normal Breath Sounds. negative: Respiratory Distress, Accessory Muscle Use, Labored Respiration Cardiovascular: positive: Regular Rhythm, Bradycardia Gastrointestinal/Abdominal: positive: Soft, Tenderness (Left inguinal region. Palpable mass to area. Limited exam due to patient's tolerability) Male Genitalia: positive: normal genitalia Musculoskeletal: negative: CVA Tenderness Integumentary: positive: Normal Color, Warm Neurologic: positive: Motor Strength 5/5 (Ambulatory). negative: Normal Mood/A ffect (Groggy) ED Treatment Course - LABORATORY CBC & Chemistry Diagram: 09/22/19 15:50 09/22/19 15:42 - RADIOLOGY Radiology Studies Ordered: Category Date Time Status ABDOMEN & PELVIS CT WITH CONTR [CT] Stat CT Scan 09/22/19 15:38 Ordered Medical Decision Making - Medical Decision Making 09/22/19 15:55 Chief complaint: Patient sent here from [facility] for evaluation of a left inguinal hernia which was on able to be reduced today. Patient states history of the same for months and has not followed up with a surgeon. Exam: Patient with palpable semi-firm mass but limited exam due to discomfort from patient. Plan: Labs, urine and abdominal CT ordered along with morphine IV 09/22/19 18:19 Laboratory Tests 09/20/19 09/22/19 09/22/19 11:20 15:42 15:50 WBC 3.8 L 3.2 L Hgb 8.7 L 10.1 L Absolute Neuts (auto) 1.1 L Lymphocytes % 40.8 H Monocytes % 16.6 H Eosinophils % 7.4 H Sodium 138 Potassium 4.7 Chloride 106 Carbon Dioxide 26 Anion Gap 6 L BUN 16.1 Creatinine 0.7 Lactic Acid Calcium 8.6 Total Bilirubin 0.3 AST 34 ALT 17 Alkaline Phosphatase 57 Total Protein 7.9 Albumin 3.1 L Lipase 132 Urine Ketones Urine Blood Urine Bilirubin Ur Leukocyte Esterase 09/22/19 09/22/19 16:00 16:10 WBC Hgb Absolute Neuts (auto) Lymphocytes % Monocytes % Eosinophils % Sodium Potassium Chloride Carbon Dioxide Anion Gap BUN Creatinine Lactic Acid 1.2 Calcium Total Bilirubin AST ALT Alkaline Phosphatase Total Protein Albumin Lipase Urine Ketones Negative Urine Blood Negative Urine Bilirubin Negative Ur Leukocyte Esterase Negative . Patient awaiting CT patient requesting to eat numerous times but explained to patient the Necessity for maintaining n.p.o. status. Otherwise he is ambulatory requesting more medication for pain. I have explained to him he will receive another 2 mg of morphine prior to CT 09/22/19 20:[address] with contrast shows no acute process except noted was a 1 cm cyst in the upper pole of the right kidney with no renal lesion hydronephrosis or hydroureter. Patient will be sent back to [facility]. patient requesting to eat and given sandwich Discharge - Discharge Information Problems reviewed: Yes Clinical Impression/Diagnosis: Abdominal pain Condition: Good Disposition: HOME - Follow up/Referral - Patient Discharge Instructions Patient Printed Discharge Instructions: DI for Abdominal Pain-Adult Additional Instructions: Please follow-up with [facility] and follow program as indicated - Post Discharge Activity
[2019-09-22 16:35] LABS: BASO % 1.4 % (0-2.0); EOS % 7.4 % (0-4.5); HEMATOCRIT 32.6 % (35.4-49); HEMOGLOBIN 10.1 GM/dL (11.7-16.9); LYMPH % 40.8 % (8-40); MCH 23.2 pg (25.7-33.7); MEAN CELL VOLUME 74.8 fl (80-96); MONO % 16.6 % (3.8-10.2); NEUT % 33.8 % (42.8-82.8); PLATELET COUNT 277 K/MM3 (134-434); RBC 4.35 M/mm3 (4.00-5.60); RDW 18.2 % (11.9-15.9); WHITE BLOOD COUNT 3.2 K/mm3 (4.0-10.0)
[2019-09-22 16:43] LABS: PH,URINE 6.5 (5.0-8.0); URINE APPEARANCE CLEAR; URINE BILIRUBIN NEGATIVE (NEGATIVE); URINE COLOR YELLOW; URINE GLUCOSE (UA) NEGATIVE (NEGATIVE); URINE KETONE NEGATIVE (NEGATIVE); URINE LEUK ESTERASE NEGATIVE (NEGATIVE); URINE NITRITE NEGATIVE (NEGATIVE); URINE PROTEIN NEGATIVE (NEGATIVE)
[2019-09-22 17:08] LABS: ALBUMIN 3.1 g/dl (3.4-5.0); BILIRUBIN,TOTAL 0.3 mg/dL (0.2-1); BLOOD UREA NITROGEN 16.1 mg/dL (7-18); CALCIUM 8.6 mg/dL (8.5-10.1); CREATININE 0.7 mg/dL (0.55-1.3); POTASSIUM 4.7 mmol/L (3.5-5.1); TOT PROT 7.9 g/dl (6.4-8.2)
== END 2019-09-22 22:00 | disposition home or self-care (01) ==
LOC: JER 14:39
PROC: 3E033NZ Introduction of Analgesics, Hypnotics, Sedatives into Peripheral Vein, Percutaneous Approach (ICD-10-PCS; principal; 2019-09-22)
PROC: 3E0337Z Introduction of Electrolytic and Water Balance Substance into Peripheral Vein, Percutaneous Approach (ICD-10-PCS; 2019-09-22)
DX: R10.9 Unspecified abdominal pain (principal)
CPT/HCPCS: 36415; 74177-TC; 80053; 81003; 83605; 83690; 85025; 87086; 99285-25; Q9967

== ENCOUNTER 2019-12-24 11:06 | Inpatient (IN) | payer OTHER ==
[2019-12-24 12:01] VITALS: BMI 25.7
[2019-12-24] MEDS ORDERED: BISMUTH SUBSALICYLATE 524 MG/30 ML UD PO PRN (13:05)
[2019-12-24] MEDS ORDERED: ACETAMINOPHEN 325 MG TABLET (FP) PO PRN (13:05)
[2019-12-24] MEDS ORDERED: MAG HYDROX/AL HYDROX/SIMETH 30 ML UNIT-DOSE CUP PO PRN (13:05)
[2019-12-24] MEDS ORDERED: ONDANSETRON *ODT* 4 MG TABLET SL PRN (13:05)
[2019-12-24] MEDS ORDERED: MAGNESIUM CITRATE 300 ML BOTTLE PO PRN (13:05)
[2019-12-24] MEDS ORDERED: NICOTINE POLACRILEX 2 MG GUM BUC PRN (13:05)
[2019-12-24] MEDS ORDERED: MAGNESIUM HYDROX 2400MG/30ML ORAL SUSPENSION 30 ML CUP PO PRN (13:05)
[2019-12-24] MEDS ORDERED: MENTHOL/PHENOL 1 EACH UD MM PRN (13:05)
[2019-12-24] MEDS ORDERED: METHOCARBAMOL 500 MG TABLET PO PRN (13:05)
[2019-12-24] MEDS ORDERED: cloNIDine HCL 0.1 MG TABLET PO PRN (13:17)
[2019-12-24] MEDS ORDERED: chlordiazePOXIDE HCL 25 MG CAPSULE PO PRN (13:17)
[2019-12-24] MEDS ORDERED: METHADONE HCL 10 MG TABLET (FOR DETOX USE ONLY) PO ONE (13:45)
[2019-12-24] MEDS ORDERED: chlordiazePOXIDE HCL 25 MG CAPSULE PO ONE (13:45)
[2019-12-24] MEDS: GABAPENTIN 300 MG CAPSULE PO SCH ×2 (13:48→22:12)
[2019-12-24] MEDS: IBUPROFEN 400 MG TABLET (FP) PO PRN (13:50)
[2019-12-24] MEDS: NICOTINE 14 MG/24 HOURS TOPICAL PATCH TD SCH (13:53)
[2019-12-24] MEDS: hydrOXYzine PAMOATE 25 MG CAPSULE (FP) PO SCH ×3 (14:25→22:32)
[2019-12-24] MEDS: chlordiazePOXIDE HCL 25 MG CAPSULE PO SCH ×2 (17:30→22:13)
[2019-12-24 17:39] LABS: POTASSIUM 4.1 mmol/L (3.5-5.1)
[2019-12-24 17:41] LABS: CALCIUM 8.6 mg/dL (8.5-10.1)
[2019-12-24 17:42] LABS: ALBUMIN 3.2 g/dl (3.4-5.0); BLOOD UREA NITROGEN 20.6 mg/dL (7-18)
[2019-12-24 17:45] LABS: CREATININE 0.8 mg/dL (0.55-1.3)
[2019-12-24 17:46] LABS: BILIRUBIN,TOTAL 0.8 mg/dL (0.2-1)
[2019-12-24 17:58] LABS: HEMATOCRIT 34.1 % (35.4-49); HEMOGLOBIN 10.5 GM/dL (11.7-16.9); MCH 22.1 pg (25.7-33.7); MCHC 30.8 g/dl (32.0-35.9); MEAN CELL VOLUME 71.7 fl (80-96); MEAN PLT VOLUME 8.5 fl (7.5-11.1); PLATELET COUNT 233 K/MM3 (134-434); RBC 4.75 M/mm3 (4.00-5.60); RDW 19.2 % (11.9-15.9); WHITE BLOOD COUNT 3.2 K/mm3 (4.0-10.0)
[2019-12-24 18:22] LABS: HIV INTERPRETATION NEGATIVE (NEGATIVE)
[2019-12-24] MEDS: THIAMINE HCL 100 MG TABLET (FP) PO SCH (22:12)
[2019-12-24] MEDS: MELATONIN 5 MG TABLETS PO SCH (22:13)
[2019-12-25] MEDS: hydrOXYzine PAMOATE 25 MG CAPSULE (FP) PO SCH ×5 (05:46→22:28)
[2019-12-25] MEDS: chlordiazePOXIDE HCL 25 MG CAPSULE PO SCH ×4 (05:46→22:27)
[2019-12-25] MEDS ORDERED: METHADONE HCL 10 MG TABLET (FOR DETOX USE ONLY) ONE (09:06)
[2019-12-25] MEDS ORDERED: METHADONE HCL 5 MG TABLET (FOR DETOX USE ONLY) ONE (09:06)
[2019-12-25] MEDS ORDERED: METHADONE (DETOX) 20 MG, METHADONE (DETOX) 5 MG PO ONE (10:00)
[2019-12-25] MEDS: NICOTINE 14 MG/24 HOURS TOPICAL PATCH TD SCH (10:04)
[2019-12-25] MEDS: GABAPENTIN 300 MG CAPSULE PO SCH ×2 (10:04→22:26)
[2019-12-25] MEDS: PRENATAL VITAMINS W/ FOLIC ACID TABLET (FP) PO SCH (10:08)
[2019-12-25] MEDS: IBUPROFEN 400 MG TABLET (FP) PO PRN (15:16)
[2019-12-25] MEDS: ACETAMINOPHEN 325 MG TABLET (FP) PO PRN (17:34)
[2019-12-25] MEDS: MELATONIN 5 MG TABLETS PO SCH (22:26)
[2019-12-25] MEDS: THIAMINE HCL 100 MG TABLET (FP) PO SCH (22:27)
[2019-12-26] MEDS: chlordiazePOXIDE HCL 25 MG CAPSULE PO SCH ×4 (06:05→22:47)
[2019-12-26] MEDS: hydrOXYzine PAMOATE 25 MG CAPSULE (FP) PO SCH ×3 (06:05→14:47)
[2019-12-26] MEDS: IBUPROFEN 400 MG TABLET (FP) PO PRN ×2 (06:16→17:51)
[2019-12-26] MEDS ORDERED: METHADONE HCL 10 MG TABLET (FOR DETOX USE ONLY) PO ONE (10:00)
[2019-12-26] MEDS: NICOTINE 14 MG/24 HOURS TOPICAL PATCH TD SCH (11:05)
[2019-12-26] MEDS: GABAPENTIN 300 MG CAPSULE PO SCH ×2 (11:05→22:47)
[2019-12-26] MEDS: PRENATAL VITAMINS W/ FOLIC ACID TABLET (FP) PO SCH (11:06)
[2019-12-26] MEDS ORDERED: FLU VACCINE (FLULAVAL) PF 60 MCG/0.5 ML SYRINGE 2020-2021 IM ONE (12:00)
[2019-12-26] MEDS ORDERED: hydrOXYzine PAMOATE 25 MG CAPSULE (FP) PO PRN (14:47)
[2019-12-26] MEDS: ACETAMINOPHEN 325 MG TABLET (FP) PO PRN ×2 (15:47→22:48)
[2019-12-26] MEDS: FERROUS SO4 325 MG TABLET (FP) PO SCH (17:52)
[2019-12-26] MEDS: MELATONIN 5 MG TABLETS PO SCH (22:46)
[2019-12-26] MEDS: THIAMINE HCL 100 MG TABLET (FP) PO SCH (22:47)
[2019-12-27] MEDS ORDERED: chlordiazePOXIDE HCL 10 MG CAPSULE PO PRN
[2019-12-27] MEDS: chlordiazePOXIDE HCL 10 MG CAPSULE PO SCH ×3 (05:24→17:35)
[2019-12-27] MEDS: ACETAMINOPHEN 325 MG TABLET (FP) PO PRN ×2 (05:28→15:18)
[2019-12-27] MEDS: FERROUS SO4 325 MG TABLET (FP) PO SCH ×2 (07:35→17:35)
[2019-12-27] MEDS: IBUPROFEN 400 MG TABLET (FP) PO PRN (09:44)
[2019-12-27] MEDS ORDERED: METHADONE HCL 5 MG TABLET (FOR DETOX USE ONLY) ONE (09:46)
[2019-12-27] MEDS ORDERED: METHADONE HCL 10 MG TABLET (FOR DETOX USE ONLY) ONE (09:47)
[2019-12-27] MEDS: NICOTINE 14 MG/24 HOURS TOPICAL PATCH TD SCH (09:48)
[2019-12-27] MEDS: GABAPENTIN 300 MG CAPSULE PO SCH (09:48)
[2019-12-27] MEDS: PRENATAL VITAMINS W/ FOLIC ACID TABLET (FP) PO SCH (09:48)
[2019-12-27] MEDS ORDERED: METHADONE (DETOX) 10 MG, METHADONE (DETOX) 5 MG PO ONE (10:00)
[2019-12-27 17:49] VITALS: BP 108/73; PULSE 88; TEMP 97
[2019-12-28] MEDS ORDERED: chlordiazePOXIDE HCL 10 MG CAPSULE PO SCH (05:00)
[2019-12-28] MEDS ORDERED: METHADONE HCL 10 MG TABLET (FOR DETOX USE ONLY) PO ONE (10:00)
[2019-12-29] MEDS ORDERED: chlordiazePOXIDE HCL 10 MG CAPSULE PO ONE (05:00)
[2019-12-29] MEDS ORDERED: METHADONE HCL 5 MG TABLET (FOR DETOX USE ONLY) PO ONE (06:00)
== END 2019-12-27 17:35 | disposition left against medical advice (07) | DRG 894 ==
LOC: YASAS 11:06 → Y6N 12:30
PROVIDERS: ADMIT Allergy & Immunology; ATTEND Allergy & Immunology
PROC: HZ2ZZZZ Detoxification Services for Substance Abuse Treatment (ICD-10-PCS; principal; 2019-12-24)
DX: F10.230 Alcohol dependence with withdrawal, uncomplicated (principal); F14.20 Cocaine dependence, uncomplicated; F11.23 Opioid dependence with withdrawal; F12.10 Cannabis abuse, uncomplicated; F17.210 Nicotine dependence, cigarettes, uncomplicated; F32.9 Major depressive disorder, single episode, unspecified; G62.9 Polyneuropathy, unspecified; D64.9 Anemia, unspecified; M19.90 Unspecified osteoarthritis, unspecified site; M54.31 Sciatica, right side; M54.32 Sciatica, left side; K64.9 Unspecified hemorrhoids; R00.1 Bradycardia, unspecified; R10.32 Left lower quadrant pain; Z86.19 Personal history of other infectious and parasitic diseases
CPT/HCPCS: 36415; 80053; 85027; 86593; 86780; 87389; 93005; 93010; C9803; U0003

== ENCOUNTER 2022-01-07 20:18 | Inpatient (IN) | payer OTHER ==
[2022-01-08 00:48] VITALS: BMI 27.2
[2022-01-08] MEDS ORDERED: LOPERAMIDE HCL 2 MG CAPSULE PO PRN (03:13)
[2022-01-08] MEDS ORDERED: POLYETHYLENE GLYCOL (HEALTHYLAX) 3350 17 GM PACKET PO PRN (03:13)
[2022-01-08] MEDS ORDERED: MAG HYDROX/AL HYDROX/SIMETH 30 ML UNIT-DOSE CUP PO PRN (03:13)
[2022-01-08] MEDS ORDERED: ACETAMINOPHEN 325 MG TABLET (FP) PO PRN (03:13)
[2022-01-08] MEDS ORDERED: NICOTINE POLACRILEX 2 MG GUM BUC PRN (03:13)
[2022-01-08] MEDS ORDERED: methaDONE HCL 10 MG TABLET (FOR DETOX USE ONLY) PO ONE ×2 (03:13→05:00)
[2022-01-08] MEDS ORDERED: NALOXONE HCL (KLOXXADO) 8 MG SPRAY NS PRN (03:13)
[2022-01-08] MEDS ORDERED: ONDANSETRON *ODT* 4 MG TABLET SL PRN (03:13)
[2022-01-08] MEDS ORDERED: DICYCLOMINE HCL 10 MG CAPSULE PO PRN (03:13)
[2022-01-08] MEDS: IBUPROFEN 400 MG TABLET (FP) PO PRN (04:50)
[2022-01-08] MEDS: METHOCARBAMOL 500 MG TABLET PO PRN ×2 (06:23→15:45)
[2022-01-08] MEDS: PRENATAL VITAMINS W/ FOLIC ACID TABLET (FP) PO SCH (10:52)
[2022-01-08] MEDS: NICOTINE 14 MG/24 HOURS TOPICAL PATCH TD SCH (10:52)
[2022-01-08] MEDS: IBUPROFEN 600 MG TABLET (FP) PO PRN (15:45)
[2022-01-08] MEDS: cloNIDine HCL 0.1 MG TABLET PO PRN ×2 (17:39→23:51)
[2022-01-08] MEDS: ACETAMINOPHEN 325 MG TABLET (FP) PO PRN (17:40)
[2022-01-08] MEDS: MAGNESIUM HYDROX 2400MG/30ML ORAL SUSPENSION 30 ML CUP PO PRN (17:42)
[2022-01-08] MEDS: MELATONIN 5 MG TABLETS PO SCH (22:55)
[2022-01-08] MEDS: THIAMINE HCL 100 MG TABLET (FP) PO SCH (22:55)
[2022-01-09] MEDS: METHOCARBAMOL 500 MG TABLET PO PRN ×4 (01:03→22:05)
[2022-01-09] MEDS: IBUPROFEN 600 MG TABLET (FP) PO PRN ×2 (01:18→09:38)
[2022-01-09] MEDS: MAGNESIUM HYDROX 2400MG/30ML ORAL SUSPENSION 30 ML CUP PO PRN (01:26)
[2022-01-09] MEDS: cloNIDine HCL 0.1 MG TABLET PO PRN ×3 (05:18→22:05)
[2022-01-09] MEDS: ACETAMINOPHEN 325 MG TABLET (FP) PO PRN (05:19)
[2022-01-09] MEDS: BENZOCAINE/MENTHOL (CHLORASEPTIC ) LOZENGE MM PRN ×2 (07:26→19:08)
[2022-01-09] MEDS: NICOTINE 14 MG/24 HOURS TOPICAL PATCH TD SCH (09:38)
[2022-01-09] MEDS: PRENATAL VITAMINS W/ FOLIC ACID TABLET (FP) PO SCH (09:38)
[2022-01-09 11:12] LABS: ALBUMIN 3.8 g/dl (3.4-5.0); BLOOD UREA NITROGEN 23.6 mg/dL (7-18); CALCIUM 9.2 mg/dL (8.5-10.1)
[2022-01-09 11:14] LABS: HEMATOCRIT 34.2 % (35.4-49); HEMOGLOBIN 11.1 GM/dL (11.7-16.9); MCH 25.5 pg (25.7-33.7); MCHC 32.3 g/dl (32.0-35.9); MEAN PLT VOLUME 9.6 fl (7.5-11.1); PLATELET COUNT 254 10^3/uL (134-434); RBC 4.33 M/mm3 (4.00-5.60); WHITE BLOOD COUNT 5.3 K/mm3 (4.0-10.0)
[2022-01-09 11:15] LABS: CREATININE 0.7 mg/dL (0.55-1.3)
[2022-01-09 11:17] LABS: BILIRUBIN,TOTAL 0.5 mg/dL (0.2-1)
[2022-01-09] MEDS: IBUPROFEN 400 MG TABLET (FP) PO PRN ×2 (16:32→22:05)
[2022-01-09] MEDS: MELATONIN 5 MG TABLETS PO SCH (22:03)
[2022-01-09] MEDS: THIAMINE HCL 100 MG TABLET (FP) PO SCH (22:03)
[2022-01-10] MEDS: IBUPROFEN 600 MG TABLET (FP) PO PRN ×2 (00:40→22:04)
[2022-01-10] MEDS: METHOCARBAMOL 500 MG TABLET PO PRN ×2 (09:32→22:02)
[2022-01-10] MEDS: PRENATAL VITAMINS W/ FOLIC ACID TABLET (FP) PO SCH (09:34)
[2022-01-10] MEDS: NICOTINE 14 MG/24 HOURS TOPICAL PATCH TD SCH (09:34)
[2022-01-10] MEDS: cloNIDine HCL 0.1 MG TABLET PO PRN (09:35)
[2022-01-10] MEDS: NICOTINE 10 MG CARTRIDGE (INHALER) IH PRN (09:39)
[2022-01-10] MEDS: BENZOCAINE/MENTHOL (CHLORASEPTIC ) LOZENGE MM PRN (09:41)
[2022-01-10] MEDS: MAGNESIUM HYDROX 2400MG/30ML ORAL SUSPENSION 30 ML CUP PO PRN (09:41)
[2022-01-10] MEDS ORDERED: methaDONE HCL 10 MG TABLET (FOR DETOX USE ONLY) PO ONE (10:00)
[2022-01-10] MEDS: VITAMINS A AND D TOPICAL OINTMENT 60 GM TUBE TP SCH ×2 (11:15→22:04)
[2022-01-10] MEDS: THIAMINE HCL 100 MG TABLET (FP) PO SCH (22:02)
[2022-01-10] MEDS: MELATONIN 5 MG TABLETS PO SCH (22:04)
[2022-01-11] MEDS: ACETAMINOPHEN 325 MG TABLET (FP) PO PRN (02:28)
[2022-01-11] MEDS: BISMUTH SUBSALICYLATE 524 MG/30 ML PO PRN ×2 (02:31→22:07)
[2022-01-11] MEDS: PRENATAL VITAMINS W/ FOLIC ACID TABLET (FP) PO SCH (10:11)
[2022-01-11] MEDS: NICOTINE 14 MG/24 HOURS TOPICAL PATCH TD SCH (10:12)
[2022-01-11] MEDS: VITAMINS A AND D TOPICAL OINTMENT 60 GM TUBE TP SCH ×2 (10:13→22:06)
[2022-01-11] MEDS: NICOTINE 10 MG CARTRIDGE (INHALER) IH PRN (10:13)
[2022-01-11] MEDS: IBUPROFEN 600 MG TABLET (FP) PO PRN (10:14)
[2022-01-11 12:01] LABS: BLOOD UREA NITROGEN 18.8 mg/dL (7-18)
[2022-01-11 12:03] LABS: URIC ACID 4.4 mg/dL (2.6-7.2)
[2022-01-11] MEDS: METHOCARBAMOL 500 MG TABLET PO PRN (22:06)
[2022-01-11] MEDS: THIAMINE HCL 100 MG TABLET (FP) PO SCH (22:06)
[2022-01-11] MEDS: MELATONIN 5 MG TABLETS PO SCH (22:06)
[2022-01-12] MEDS: IBUPROFEN 600 MG TABLET (FP) PO PRN ×2 (05:15→20:07)
[2022-01-12] MEDS: METHOCARBAMOL 500 MG TABLET PO PRN ×2 (05:15→22:14)
[2022-01-12] MEDS ORDERED: methaDONE HCL 10 MG TABLET (FOR DETOX USE ONLY) PO ONE (10:00)
[2022-01-12] MEDS: VITAMINS A AND D TOPICAL OINTMENT 60 GM TUBE TP SCH ×2 (10:10→22:12)
[2022-01-12] MEDS: PRENATAL VITAMINS W/ FOLIC ACID TABLET (FP) PO SCH (10:10)
[2022-01-12] MEDS: NICOTINE 14 MG/24 HOURS TOPICAL PATCH TD SCH (10:10)
[2022-01-12] MEDS: MAGNESIUM HYDROX 2400MG/30ML ORAL SUSPENSION 30 ML CUP PO PRN (20:08)
[2022-01-12] MEDS: MELATONIN 5 MG TABLETS PO SCH (22:11)
[2022-01-12] MEDS: THIAMINE HCL 100 MG TABLET (FP) PO SCH (22:14)
[2022-01-12] MEDS: BENZOCAINE/MENTHOL (CHLORASEPTIC ) LOZENGE MM PRN (22:15)
[2022-01-13] MEDS: PRENATAL VITAMINS W/ FOLIC ACID TABLET (FP) PO SCH (10:06)
[2022-01-13] MEDS: VITAMINS A AND D TOPICAL OINTMENT 60 GM TUBE TP SCH (10:07)
[2022-01-13] MEDS: IBUPROFEN 600 MG TABLET (FP) PO PRN (10:09)
[2022-01-13] MEDS: NICOTINE 14 MG/24 HOURS TOPICAL PATCH TD SCH (10:09)
[2022-01-13 10:37] VITALS: BP 137/71; PULSE 67; RESP 16; TEMP 97.8
== END 2022-01-13 12:15 | disposition other institution (70) | DRG 897 ==
LOC: YASAS 20:18 → Y6N 01-08 04:54
PROVIDERS: ADMIT Allergy & Immunology; ATTEND Surgery
PROC: HZ2ZZZZ Detoxification Services for Substance Abuse Treatment (ICD-10-PCS; principal; 2022-01-08)
DX: F11.23 Opioid dependence with withdrawal (principal); F14.20 Cocaine dependence, uncomplicated; F17.210 Nicotine dependence, cigarettes, uncomplicated; G62.9 Polyneuropathy, unspecified; M54.40 Lumbago with sciatica, unspecified side; G89.29 Other chronic pain; R73.03 Prediabetes; R26.89 Other abnormalities of gait and mobility; Z99.89 Dependence on other enabling machines and devices; Z86.19 Personal history of other infectious and parasitic diseases
CPT/HCPCS: 36415; 80053; 82962; 83036; 84520; 84550; 85027; 86593; 86780; 93005; 93010; C9803-CS; U0003; U0005

== ENCOUNTER 2022-01-13 12:24 | Inpatient (IN) | payer OTHER ==
[2022-01-13] MEDS ORDERED: P-EPHED 60MG/TRIPROLIDI 2.5MG TABLET PO PRN (15:45)
[2022-01-13] MEDS ORDERED: guaiFENesin 200 MG/10 ML 10 ML UNIT-DOSE CUPS PO PRN (15:45)
[2022-01-13] MEDS ORDERED: BENZOCAINE/MENTHOL (CHLORASEPTIC ) LOZENGE MM PRN (15:45)
[2022-01-13] MEDS ORDERED: LOPERAMIDE HCL 2 MG CAPSULE PO PRN (15:45)
[2022-01-13] MEDS ORDERED: POLYETHYLENE GLYCOL (HEALTHYLAX) 3350 17 GM PACKET PO PRN (15:45)
[2022-01-13] MEDS: IBUPROFEN 400 MG TABLET (FP) PO PRN (18:53)
[2022-01-13] MEDS: THIAMINE HCL 100 MG TABLET (FP) PO SCH (21:15)
[2022-01-13] MEDS: NICOTINE 10 MG CARTRIDGE (INHALER) IH PRN (21:16)
[2022-01-13] MEDS: MAGNESIUM HYDROX 2400MG/30ML ORAL SUSPENSION 30 ML CUP PO PRN (21:17)
[2022-01-13] MEDS ORDERED: MELATONIN 5 MG TABLETS PO SCH (22:00)
[2022-01-14] MEDS: hydrOXYzine PAMOATE 25 MG CAPSULE (FP) PO PRN (00:29)
[2022-01-14] MEDS: IBUPROFEN 400 MG TABLET (FP) PO PRN ×2 (04:00→09:53)
[2022-01-14] MEDS: PRENATAL VITAMINS W/ FOLIC ACID TABLET (FP) PO SCH (09:51)
[2022-01-14] MEDS: NICOTINE 7 MG/24 HOURS TOPICAL PATCH TD SCH (09:51)
[2022-01-14] MEDS: MAGNESIUM HYDROX 2400MG/30ML ORAL SUSPENSION 30 ML CUP PO PRN (09:53)
[2022-01-14] MEDS ORDERED: METHOCARBAMOL 500 MG TABLET PO PRN (11:22)
[2022-01-14] MEDS: LIDOCAINE 5% TOPICAL PATCH TP SCH (13:09)
[2022-01-14] MEDS: BACLOFEN 10 MG TABLET (FP) PO PRN ×2 (13:09→21:10)
[2022-01-14] MEDS: DOCUSATE SODIUM 100 MG CAPSULE (FP) PO SCH ×2 (13:21→21:10)
[2022-01-14] MEDS: MAG HYDROX/AL HYDROX/SIMETH 30 ML UNIT-DOSE CUP PO PRN (19:28)
[2022-01-14] MEDS: THIAMINE HCL 100 MG TABLET (FP) PO SCH (21:10)
[2022-01-14] MEDS: METHYL SALICYLATE/MENTHOL OINT 30 GM TUBE TP SCH (21:11)
[2022-01-14] MEDS: LIDOCAINE PATCH REMOVAL MC SCH (21:12)
[2022-01-14] MEDS ORDERED: MELATONIN 5 MG TABLETS PO PRN (22:00)
[2022-01-15] MEDS: IBUPROFEN 400 MG TABLET (FP) PO PRN (03:23)
[2022-01-15] MEDS: BACLOFEN 10 MG TABLET (FP) PO PRN (03:24)
[2022-01-15] MEDS: MAG HYDROX/AL HYDROX/SIMETH 30 ML UNIT-DOSE CUP PO PRN (03:25)
[2022-01-15] MEDS: MAGNESIUM HYDROX 2400MG/30ML ORAL SUSPENSION 30 ML CUP PO PRN (03:26)
[2022-01-15] MEDS: DOCUSATE SODIUM 100 MG CAPSULE (FP) PO SCH ×3 (05:59→21:09)
[2022-01-15] MEDS: PRENATAL VITAMINS W/ FOLIC ACID TABLET (FP) PO SCH (10:16)
[2022-01-15] MEDS: NICOTINE 7 MG/24 HOURS TOPICAL PATCH TD SCH (10:16)
[2022-01-15] MEDS: LIDOCAINE 5% TOPICAL PATCH TP SCH (10:17)
[2022-01-15] MEDS: ACETAMINOPHEN 325 MG TABLET (FP) PO PRN (10:18)
[2022-01-15] MEDS: POLYETHYLENE GLYCOL (HEALTHYLAX) 3350 17 GM PACKET PO SCH (11:59)
[2022-01-15] MEDS ORDERED: BUPRENORPHINE/NALOXONE 2 MG/0.5 MG FILM PACKET SL PRN (12:00)
[2022-01-15] MEDS: THIAMINE HCL 100 MG TABLET (FP) PO SCH (21:09)
[2022-01-15] MEDS: SUVOREXANT 10 MG TABLET PO PRN (21:10)
[2022-01-15] MEDS: LIDOCAINE PATCH REMOVAL MC SCH (21:11)
[2022-01-15] MEDS: METHYL SALICYLATE/MENTHOL OINT 30 GM TUBE TP SCH (21:11)
[2022-01-16] MEDS: DOCUSATE SODIUM 100 MG CAPSULE (FP) PO SCH ×3 (06:34→21:11)
[2022-01-16] MEDS ORDERED: BUPRENORPHINE/NALOXONE 2 MG/0.5 MG FILM PACKET SL ONE (09:30)
[2022-01-16] MEDS: PRENATAL VITAMINS W/ FOLIC ACID TABLET (FP) PO SCH (09:51)
[2022-01-16] MEDS: NICOTINE 7 MG/24 HOURS TOPICAL PATCH TD SCH (09:51)
[2022-01-16] MEDS: LIDOCAINE 5% TOPICAL PATCH TP SCH (09:51)
[2022-01-16] MEDS: POLYETHYLENE GLYCOL (HEALTHYLAX) 3350 17 GM PACKET PO SCH (09:51)
[2022-01-16] MEDS: IBUPROFEN 400 MG TABLET (FP) PO PRN (09:52)
[2022-01-16] MEDS: BUPRENORPHINE/NALOXONE 2 MG/0.5 MG FILM PACKET SL SCH (17:37)
[2022-01-16] MEDS: SUVOREXANT 10 MG TABLET PO PRN (21:10)
[2022-01-16] MEDS: THIAMINE HCL 100 MG TABLET (FP) PO SCH (21:11)
[2022-01-16] MEDS: METHYL SALICYLATE/MENTHOL OINT 30 GM TUBE TP SCH (21:53)
[2022-01-16] MEDS: LIDOCAINE PATCH REMOVAL MC SCH (21:54)
[2022-01-16] MEDS: NICOTINE 10 MG CARTRIDGE (INHALER) IH PRN (22:04)
[2022-01-17] MEDS: IBUPROFEN 400 MG TABLET (FP) PO PRN (03:40)
[2022-01-17] MEDS: hydrOXYzine PAMOATE 25 MG CAPSULE (FP) PO PRN ×2 (03:40→21:07)
[2022-01-17] MEDS: BUPRENORPHINE/NALOXONE 2 MG/0.5 MG FILM PACKET SL SCH (06:58)
[2022-01-17] MEDS: DOCUSATE SODIUM 100 MG CAPSULE (FP) PO SCH ×3 (06:58→21:07)
[2022-01-17] MEDS: PRENATAL VITAMINS W/ FOLIC ACID TABLET (FP) PO SCH (09:42)
[2022-01-17] MEDS: NICOTINE 7 MG/24 HOURS TOPICAL PATCH TD SCH (09:43)
[2022-01-17] MEDS: POLYETHYLENE GLYCOL (HEALTHYLAX) 3350 17 GM PACKET PO SCH (09:43)
[2022-01-17] MEDS: LIDOCAINE 5% TOPICAL PATCH TP SCH (09:43)
[2022-01-17] MEDS: BUPRENORPHINE/NALOXONE 4 MG/1 MG FILM PACKET SL SCH (17:05)
[2022-01-17] MEDS: LIDOCAINE PATCH REMOVAL MC SCH (21:07)
[2022-01-17] MEDS: BACLOFEN 10 MG TABLET (FP) PO PRN (21:07)
[2022-01-17] MEDS: METHYL SALICYLATE/MENTHOL OINT 30 GM TUBE TP SCH (21:07)
[2022-01-17] MEDS: THIAMINE HCL 100 MG TABLET (FP) PO SCH (21:07)
[2022-01-18] MEDS: BUPRENORPHINE/NALOXONE 4 MG/1 MG FILM PACKET SL SCH ×2 (07:05→17:29)
[2022-01-18] MEDS: DOCUSATE SODIUM 100 MG CAPSULE (FP) PO SCH ×3 (07:05→21:15)
[2022-01-18] MEDS: NICOTINE 7 MG/24 HOURS TOPICAL PATCH TD SCH (09:44)
[2022-01-18] MEDS: LIDOCAINE 5% TOPICAL PATCH TP SCH (09:44)
[2022-01-18] MEDS: PRENATAL VITAMINS W/ FOLIC ACID TABLET (FP) PO SCH (09:44)
[2022-01-18] MEDS: POLYETHYLENE GLYCOL (HEALTHYLAX) 3350 17 GM PACKET PO SCH (09:44)
[2022-01-18] MEDS: THIAMINE HCL 100 MG TABLET (FP) PO SCH (21:15)
[2022-01-18] MEDS: METHYL SALICYLATE/MENTHOL OINT 30 GM TUBE TP SCH (21:16)
[2022-01-18] MEDS: LIDOCAINE PATCH REMOVAL MC SCH (21:16)
[2022-01-19] MEDS: DOCUSATE SODIUM 100 MG CAPSULE (FP) PO SCH ×3 (06:45→21:15)
[2022-01-19] MEDS: BUPRENORPHINE/NALOXONE 4 MG/1 MG FILM PACKET SL SCH ×2 (06:45→17:49)
[2022-01-19] MEDS ORDERED: GABAPENTIN 100 MG CAPSULE PO ONE (10:31)
[2022-01-19] MEDS: NICOTINE 7 MG/24 HOURS TOPICAL PATCH TD SCH (10:43)
[2022-01-19] MEDS: LIDOCAINE 5% TOPICAL PATCH TP SCH (10:43)
[2022-01-19] MEDS: PRENATAL VITAMINS W/ FOLIC ACID TABLET (FP) PO SCH (10:45)
[2022-01-19] MEDS: POLYETHYLENE GLYCOL (HEALTHYLAX) 3350 17 GM PACKET PO SCH (10:48)
[2022-01-19] MEDS: SELENIUM SULFIDE 2.25% 180 ML SHAMPOO TP SCH (13:34)
[2022-01-19] MEDS: GABAPENTIN 100 MG CAPSULE PO SCH ×2 (14:26→21:14)
[2022-01-19] MEDS: IBUPROFEN 400 MG TABLET (FP) PO PRN (16:04)
[2022-01-19] MEDS: THIAMINE HCL 100 MG TABLET (FP) PO SCH (21:14)
[2022-01-19] MEDS: BACLOFEN 10 MG TABLET (FP) PO PRN (21:14)
[2022-01-19] MEDS: METHYL SALICYLATE/MENTHOL OINT 30 GM TUBE TP SCH (21:15)
[2022-01-19] MEDS: SUVOREXANT 10 MG TABLET PO PRN (21:17)
[2022-01-19] MEDS: LIDOCAINE PATCH REMOVAL MC SCH (22:57)
[2022-01-20] MEDS: DOCUSATE SODIUM 100 MG CAPSULE (FP) PO SCH ×3 (06:55→21:20)
[2022-01-20] MEDS: GABAPENTIN 100 MG CAPSULE PO SCH ×3 (06:55→21:20)
[2022-01-20] MEDS: BUPRENORPHINE/NALOXONE 4 MG/1 MG FILM PACKET SL SCH ×2 (06:55→17:49)
[2022-01-20] MEDS: LIDOCAINE 5% TOPICAL PATCH TP SCH (09:49)
[2022-01-20] MEDS: PRENATAL VITAMINS W/ FOLIC ACID TABLET (FP) PO SCH (09:49)
[2022-01-20] MEDS: SELENIUM SULFIDE 2.25% 180 ML SHAMPOO TP SCH (09:50)
[2022-01-20] MEDS: NICOTINE 7 MG/24 HOURS TOPICAL PATCH TD SCH (09:50)
[2022-01-20] MEDS: POLYETHYLENE GLYCOL (HEALTHYLAX) 3350 17 GM PACKET PO SCH (09:51)
[2022-01-20] MEDS: MAGNESIUM HYDROX 2400MG/30ML ORAL SUSPENSION 30 ML CUP PO PRN (10:51)
[2022-01-20] MEDS: ACETAMINOPHEN 325 MG TABLET (FP) PO PRN (10:52)
[2022-01-20] MEDS: SIMETHICONE 80 MG TAB.CHEW (FP) PO PRN (14:15)
[2022-01-20] MEDS: IBUPROFEN 400 MG TABLET (FP) PO PRN (17:50)
[2022-01-20] MEDS: THIAMINE HCL 100 MG TABLET (FP) PO SCH (21:20)
[2022-01-20] MEDS: METHYL SALICYLATE/MENTHOL OINT 30 GM TUBE TP SCH (21:21)
[2022-01-20] MEDS: LIDOCAINE PATCH REMOVAL MC SCH (21:21)
[2022-01-21] MEDS: SUVOREXANT 10 MG TABLET PO PRN
[2022-01-21] MEDS: hydrOXYzine PAMOATE 25 MG CAPSULE (FP) PO PRN (00:01)
[2022-01-21] MEDS: GABAPENTIN 100 MG CAPSULE PO SCH ×3 (07:00→21:50)
[2022-01-21] MEDS: DOCUSATE SODIUM 100 MG CAPSULE (FP) PO SCH ×3 (07:00→21:50)
[2022-01-21] MEDS: BUPRENORPHINE/NALOXONE 4 MG/1 MG FILM PACKET SL SCH ×2 (07:10→17:19)
[2022-01-21] MEDS: SELENIUM SULFIDE 2.25% 180 ML SHAMPOO TP SCH (09:46)
[2022-01-21] MEDS: NICOTINE 7 MG/24 HOURS TOPICAL PATCH TD SCH (09:46)
[2022-01-21] MEDS: POLYETHYLENE GLYCOL (HEALTHYLAX) 3350 17 GM PACKET PO SCH (09:46)
[2022-01-21] MEDS: PRENATAL VITAMINS W/ FOLIC ACID TABLET (FP) PO SCH (09:46)
[2022-01-21] MEDS: LIDOCAINE 5% TOPICAL PATCH TP SCH (09:46)
[2022-01-21] MEDS: SIMETHICONE 80 MG TAB.CHEW (FP) PO PRN (09:48)
[2022-01-21] MEDS: ACETAMINOPHEN 325 MG TABLET (FP) PO PRN ×2 (12:53→21:53)
[2022-01-21] MEDS: AMOXICILLIN 500 MG CAPSULE (FP) PO SCH ×2 (13:18→21:50)
[2022-01-21] MEDS: THIAMINE HCL 100 MG TABLET (FP) PO SCH (21:50)
[2022-01-21] MEDS: METHYL SALICYLATE/MENTHOL OINT 30 GM TUBE TP SCH (22:00)
[2022-01-21] MEDS: LIDOCAINE PATCH REMOVAL MC SCH (22:01)
[2022-01-22] MEDS: GABAPENTIN 100 MG CAPSULE PO SCH ×3 (06:55→21:09)
[2022-01-22] MEDS: BUPRENORPHINE/NALOXONE 4 MG/1 MG FILM PACKET SL SCH ×2 (06:55→17:36)
[2022-01-22] MEDS: DOCUSATE SODIUM 100 MG CAPSULE (FP) PO SCH ×3 (06:55→21:09)
[2022-01-22] MEDS: AMOXICILLIN 500 MG CAPSULE (FP) PO SCH ×3 (06:55→21:08)
[2022-01-22] MEDS: PRENATAL VITAMINS W/ FOLIC ACID TABLET (FP) PO SCH (09:45)
[2022-01-22] MEDS: LIDOCAINE 5% TOPICAL PATCH TP SCH (09:46)
[2022-01-22] MEDS: NICOTINE 7 MG/24 HOURS TOPICAL PATCH TD SCH (09:46)
[2022-01-22] MEDS: SELENIUM SULFIDE 2.25% 180 ML SHAMPOO TP SCH (09:46)
[2022-01-22] MEDS: POLYETHYLENE GLYCOL (HEALTHYLAX) 3350 17 GM PACKET PO SCH (11:27)
[2022-01-22] MEDS: THIAMINE HCL 100 MG TABLET (FP) PO SCH (21:09)
[2022-01-22] MEDS: METHYL SALICYLATE/MENTHOL OINT 30 GM TUBE TP SCH (21:09)
[2022-01-22] MEDS: hydrOXYzine PAMOATE 25 MG CAPSULE (FP) PO PRN (21:09)
[2022-01-22] MEDS: LIDOCAINE PATCH REMOVAL MC SCH (21:10)
[2022-01-22] MEDS: SUVOREXANT 10 MG TABLET PO PRN (21:11)
[2022-01-23] MEDS: DOCUSATE SODIUM 100 MG CAPSULE (FP) PO SCH ×3 (06:06→21:11)
[2022-01-23] MEDS: GABAPENTIN 100 MG CAPSULE PO SCH ×3 (06:06→21:11)
[2022-01-23] MEDS: AMOXICILLIN 500 MG CAPSULE (FP) PO SCH ×3 (06:06→21:11)
[2022-01-23] MEDS: BUPRENORPHINE/NALOXONE 4 MG/1 MG FILM PACKET SL SCH ×2 (06:06→17:16)
[2022-01-23] MEDS: BACLOFEN 10 MG TABLET (FP) PO PRN (06:08)
[2022-01-23] MEDS: IBUPROFEN 400 MG TABLET (FP) PO PRN ×2 (06:08→21:13)
[2022-01-23] MEDS: PRENATAL VITAMINS W/ FOLIC ACID TABLET (FP) PO SCH (09:55)
[2022-01-23] MEDS: POLYETHYLENE GLYCOL (HEALTHYLAX) 3350 17 GM PACKET PO SCH (09:56)
[2022-01-23] MEDS: LIDOCAINE 5% TOPICAL PATCH TP SCH (09:57)
[2022-01-23] MEDS: NICOTINE 7 MG/24 HOURS TOPICAL PATCH TD SCH (09:58)
[2022-01-23] MEDS: SELENIUM SULFIDE 2.25% 180 ML SHAMPOO TP SCH (10:00)
[2022-01-23] MEDS: THIAMINE HCL 100 MG TABLET (FP) PO SCH (21:11)
[2022-01-23] MEDS: LIDOCAINE PATCH REMOVAL MC SCH (21:12)
[2022-01-23] MEDS: METHYL SALICYLATE/MENTHOL OINT 30 GM TUBE TP SCH (21:12)
[2022-01-23] MEDS: SUVOREXANT 10 MG TABLET PO PRN (21:13)
[2022-01-24] MEDS: GABAPENTIN 100 MG CAPSULE PO SCH ×3 (06:14→21:12)
[2022-01-24] MEDS: AMOXICILLIN 500 MG CAPSULE (FP) PO SCH ×3 (06:14→21:12)
[2022-01-24] MEDS: DOCUSATE SODIUM 100 MG CAPSULE (FP) PO SCH ×3 (06:14→21:12)
[2022-01-24] MEDS: BUPRENORPHINE/NALOXONE 4 MG/1 MG FILM PACKET SL SCH (06:14)
[2022-01-24] MEDS: PRENATAL VITAMINS W/ FOLIC ACID TABLET (FP) PO SCH (09:54)
[2022-01-24] MEDS: LIDOCAINE 5% TOPICAL PATCH TP SCH (09:54)
[2022-01-24] MEDS: POLYETHYLENE GLYCOL (HEALTHYLAX) 3350 17 GM PACKET PO SCH (09:54)
[2022-01-24] MEDS: NICOTINE 7 MG/24 HOURS TOPICAL PATCH TD SCH (09:55)
[2022-01-24] MEDS: SELENIUM SULFIDE 2.25% 180 ML SHAMPOO TP SCH (10:28)
[2022-01-24] MEDS ORDERED: BUPRENORPHINE/NALOXONE 4 MG/1 MG FILM PACKET SL SCH (17:00)
[2022-01-24] MEDS: BUPRENORPHINE/NALOXONE 8 MG/2 MG FILM PACKET SL SCH (17:36)
[2022-01-24] MEDS: THIAMINE HCL 100 MG TABLET (FP) PO SCH (21:12)
[2022-01-24] MEDS: SUVOREXANT 10 MG TABLET PO PRN (21:12)
[2022-01-24] MEDS: LIDOCAINE PATCH REMOVAL MC SCH (21:13)
[2022-01-24] MEDS: METHYL SALICYLATE/MENTHOL OINT 30 GM TUBE TP SCH (21:13)
[2022-01-24] MEDS ORDERED: SUVOREXANT 10 MG TABLET PO PRN (22:00)
[2022-01-25] MEDS: IBUPROFEN 400 MG TABLET (FP) PO PRN ×2 (00:10→17:37)
[2022-01-25] MEDS: MAG HYDROX/AL HYDROX/SIMETH 30 ML UNIT-DOSE CUP PO PRN (00:16)
[2022-01-25] MEDS: GABAPENTIN 100 MG CAPSULE PO SCH ×3 (05:55→21:02)
[2022-01-25] MEDS: AMOXICILLIN 500 MG CAPSULE (FP) PO SCH ×3 (05:55→21:02)
[2022-01-25] MEDS: DOCUSATE SODIUM 100 MG CAPSULE (FP) PO SCH ×3 (05:55→21:02)
[2022-01-25] MEDS: BUPRENORPHINE/NALOXONE 8 MG/2 MG FILM PACKET SL SCH ×2 (06:10→17:27)
[2022-01-25] MEDS: LIDOCAINE 5% TOPICAL PATCH TP SCH (09:52)
[2022-01-25] MEDS: SELENIUM SULFIDE 2.25% 180 ML SHAMPOO TP SCH (09:53)
[2022-01-25] MEDS: NICOTINE 7 MG/24 HOURS TOPICAL PATCH TD SCH (09:53)
[2022-01-25] MEDS: PRENATAL VITAMINS W/ FOLIC ACID TABLET (FP) PO SCH (09:53)
[2022-01-25] MEDS: POLYETHYLENE GLYCOL (HEALTHYLAX) 3350 17 GM PACKET PO SCH (09:56)
[2022-01-25] MEDS ORDERED: FUROSEMIDE 20 MG TABLET (FP) PO ONE (10:45)
[2022-01-25] MEDS ORDERED: NICOTINE 7 MG/24 HOURS TOPICAL PATCH TD PRN (12:11)
[2022-01-25] MEDS: LIDOCAINE PATCH REMOVAL MC SCH (21:02)
[2022-01-25] MEDS: THIAMINE HCL 100 MG TABLET (FP) PO SCH (21:02)
[2022-01-25] MEDS: METHYL SALICYLATE/MENTHOL OINT 30 GM TUBE TP SCH (21:04)
[2022-01-26] MEDS: DOCUSATE SODIUM 100 MG CAPSULE (FP) PO SCH ×3 (06:24→21:14)
[2022-01-26] MEDS: AMOXICILLIN 500 MG CAPSULE (FP) PO SCH ×3 (06:25→21:14)
[2022-01-26] MEDS: BUPRENORPHINE/NALOXONE 8 MG/2 MG FILM PACKET SL SCH ×2 (06:25→17:37)
[2022-01-26] MEDS: GABAPENTIN 100 MG CAPSULE PO SCH ×3 (06:26→21:13)
[2022-01-26] MEDS: POLYETHYLENE GLYCOL (HEALTHYLAX) 3350 17 GM PACKET PO SCH (09:57)
[2022-01-26] MEDS: FUROSEMIDE 20 MG TABLET (FP) PO SCH (09:57)
[2022-01-26] MEDS: PRENATAL VITAMINS W/ FOLIC ACID TABLET (FP) PO SCH (09:57)
[2022-01-26] MEDS: LIDOCAINE 5% TOPICAL PATCH TP SCH (09:58)
[2022-01-26 10:02] LABS: HEMATOCRIT 37.3 % (35.4-49); HEMOGLOBIN 11.9 GM/dL (11.7-16.9); MCH 25.6 pg (25.7-33.7); MCHC 31.9 g/dl (32.0-35.9); MEAN CELL VOLUME 80.2 fl (80-96); MEAN PLT VOLUME 8.1 fl (7.5-11.1); PLATELET COUNT 217 10^3/uL (134-434); RBC 4.65 M/mm3 (4.00-5.60); RDW 17.9 % (11.9-15.9); WHITE BLOOD COUNT 3.6 K/mm3 (4.0-10.0)
[2022-01-26 10:13] LABS: CALCIUM 9.6 mg/dL (8.5-10.1)
[2022-01-26 10:14] LABS: ALBUMIN 3.8 g/dl (3.4-5.0); BLOOD UREA NITROGEN 20.4 mg/dL (7-18)
[2022-01-26 10:17] LABS: CREATININE 0.7 mg/dL (0.55-1.3)
[2022-01-26 10:19] LABS: BILIRUBIN,TOTAL 0.9 mg/dL (0.2-1); TOT PROT 8.7 g/dl (6.4-8.2)
[2022-01-26] MEDS: IBUPROFEN 400 MG TABLET (FP) PO PRN (13:26)
[2022-01-26] MEDS: THIAMINE HCL 100 MG TABLET (FP) PO SCH (21:14)
[2022-01-26] MEDS: METHYL SALICYLATE/MENTHOL OINT 30 GM TUBE TP SCH (21:14)
[2022-01-26] MEDS: LIDOCAINE PATCH REMOVAL MC SCH (21:14)
[2022-01-27 07:07] VITALS: RESP 18
[2022-01-27] MEDS: AMOXICILLIN 500 MG CAPSULE (FP) PO SCH ×3 (07:20→21:12)
[2022-01-27] MEDS: DOCUSATE SODIUM 100 MG CAPSULE (FP) PO SCH ×3 (07:21→21:12)
[2022-01-27] MEDS: BUPRENORPHINE/NALOXONE 8 MG/2 MG FILM PACKET SL SCH ×2 (07:21→17:29)
[2022-01-27] MEDS: GABAPENTIN 100 MG CAPSULE PO SCH ×3 (07:21→21:12)
[2022-01-27] MEDS: MAG HYDROX/AL HYDROX/SIMETH 30 ML UNIT-DOSE CUP PO PRN (07:31)
[2022-01-27] MEDS: PRENATAL VITAMINS W/ FOLIC ACID TABLET (FP) PO SCH (10:04)
[2022-01-27] MEDS: POLYETHYLENE GLYCOL (HEALTHYLAX) 3350 17 GM PACKET PO SCH (10:05)
[2022-01-27] MEDS: LIDOCAINE 5% TOPICAL PATCH TP SCH (10:05)
[2022-01-27] MEDS: FUROSEMIDE 20 MG TABLET (FP) PO SCH (10:07)
[2022-01-27] MEDS: IBUPROFEN 400 MG TABLET (FP) PO PRN ×2 (11:32→21:53)
[2022-01-27] MEDS: NICOTINE 10 MG CARTRIDGE (INHALER) IH PRN (17:37)
[2022-01-27] MEDS: METHYL SALICYLATE/MENTHOL OINT 30 GM TUBE TP SCH (21:12)
[2022-01-27] MEDS: LIDOCAINE PATCH REMOVAL MC SCH (21:12)
[2022-01-27] MEDS: THIAMINE HCL 100 MG TABLET (FP) PO SCH (21:12)
[2022-01-27] MEDS ORDERED: SUVOREXANT 10 MG TABLET PO PRN (22:00)
[2022-01-28] MEDS: DOCUSATE SODIUM 100 MG CAPSULE (FP) PO SCH (06:43)
[2022-01-28] MEDS: GABAPENTIN 100 MG CAPSULE PO SCH (06:43)
[2022-01-28] MEDS: AMOXICILLIN 500 MG CAPSULE (FP) PO SCH (06:44)
[2022-01-28] MEDS: BUPRENORPHINE/NALOXONE 8 MG/2 MG FILM PACKET SL SCH (06:44)
[2022-01-28 07:14] VITALS: BP 120/78; PULSE 68; TEMP 97.7
[2022-01-28] MEDS: PRENATAL VITAMINS W/ FOLIC ACID TABLET (FP) PO SCH (09:16)
[2022-01-28] MEDS: POLYETHYLENE GLYCOL (HEALTHYLAX) 3350 17 GM PACKET PO SCH (09:16)
[2022-01-28] MEDS: FUROSEMIDE 20 MG TABLET (FP) PO SCH (09:16)
[2022-01-28] MEDS: LIDOCAINE 5% TOPICAL PATCH TP SCH (09:17)
== END 2022-01-28 10:15 | disposition home or self-care (01) | DRG 895 ==
LOC: YASAS 12:24 → Y5N 12:26
PROVIDERS: ADMIT Allergy & Immunology; ATTEND Psychiatry & Neurology Pain Medicine
PROC: HZ42ZZZ Group Counseling for Substance Abuse Treatment, Cognitive-Behavioral (ICD-10-PCS; principal; 2022-01-13)
DX: F11.20 Opioid dependence, uncomplicated (principal); F14.20 Cocaine dependence, uncomplicated; F19.282 Other psychoactive substance dependence with psychoactive substance-induced sleep disorder; F10.20 Alcohol dependence, uncomplicated; F17.210 Nicotine dependence, cigarettes, uncomplicated; F32.A Depression, unspecified; G62.9 Polyneuropathy, unspecified; K59.00 Constipation, unspecified; L21.0 Seborrhea capitis; M54.40 Lumbago with sciatica, unspecified side; G89.29 Other chronic pain; R14.3 Flatulence; R73.03 Prediabetes; R60.0 Localized edema; Z99.89 Dependence on other enabling machines and devices; W18.30XA Fall on same level, unspecified, initial encounter; Y93.89 Activity, other specified; Y92.230 Patient room in hospital as the place of occurrence of the external cause
CPT/HCPCS: 36415; 80053; 85027; J0475

== ENCOUNTER 2022-06-24 12:06 | Inpatient (IN) | payer OTHER ==
[2022-06-24 13:33] VITALS: BMI 27.7
[2022-06-24] MEDS ORDERED: NICOTINE 10 MG CARTRIDGE (INHALER) IH PRN (15:19)
[2022-06-24] MEDS ORDERED: AMMONIUM LACTATE 12% LOTION 225 GM BOTTLE TP PRN (15:19)
[2022-06-24] MEDS ORDERED: ACETAMINOPHEN 325 MG TABLET (FP) PO PRN (15:19)
[2022-06-24] MEDS ORDERED: cloNIDine HCL 0.1 MG TABLET PO PRN (15:19)
[2022-06-24] MEDS ORDERED: BENZONATATE 200 MG CAPSULE PO PRN (15:19)
[2022-06-24] MEDS ORDERED: MAG HYDROX/AL HYDROX/SIMETH 30 ML UNIT-DOSE CUP PO PRN (15:19)
[2022-06-24] MEDS ORDERED: guaiFENesin 600 MG TABLET.ER (FP) PO PRN (15:19)
[2022-06-24] MEDS ORDERED: LOPERAMIDE HCL 2 MG CAPSULE PO PRN (15:19)
[2022-06-24] MEDS ORDERED: POLYETHYLENE GLYCOL (HEALTHYLAX) 3350 17 GM PACKET PO PRN (15:19)
[2022-06-24] MEDS ORDERED: NALOXONE HCL 0.4 MG/ML VIAL IM PRN (15:19)
[2022-06-24] MEDS ORDERED: NALOXONE HCL (KLOXXADO) 8 MG SPRAY NS PRN (15:19)
[2022-06-24] MEDS ORDERED: methaDONE HCL 10 MG TABLET (FOR DETOX USE ONLY) PO ONE (15:19)
[2022-06-24] MEDS ORDERED: MAGNESIUM HYDROX 2400MG/30ML ORAL SUSPENSION 30 ML CUP PO PRN (15:19)
[2022-06-24] MEDS ORDERED: BACLOFEN 10 MG TABLET (FP) PO PRN (15:19)
[2022-06-24] MEDS ORDERED: COLLOIDAL OATMEAL 1 BAR EACH TP PRN (15:19)
[2022-06-24] MEDS ORDERED: IBUPROFEN 400 MG TABLET (FP) PO PRN (15:19)
[2022-06-24] MEDS ORDERED: DICYCLOMINE HCL 10 MG CAPSULE PO PRN (15:19)
[2022-06-24] MEDS ORDERED: BENZOCAINE/MENTHOL (CHLORASEPTIC ) LOZENGE MM PRN (15:19)
[2022-06-24] MEDS ORDERED: ONDANSETRON *ODT* 4 MG TABLET SL PRN (15:19)
[2022-06-24] MEDS ORDERED: methaDONE HCL 10 MG TABLET (FOR DETOX USE ONLY) ONE (15:56)
[2022-06-24] MEDS: MELATONIN 5 MG TABLETS PO SCH (21:26)
[2022-06-24] MEDS: GABAPENTIN 300 MG CAPSULE PO SCH (21:26)
[2022-06-24] MEDS: hydrOXYzine PAMOATE 25 MG CAPSULE (FP) PO PRN (21:26)
[2022-06-24] MEDS: THIAMINE HCL 100 MG TABLET (FP) PO SCH (21:26)
[2022-06-25] MEDS: PRENATAL VITAMINS W/ FOLIC ACID TABLET (FP) PO SCH (10:17)
[2022-06-25] MEDS: GABAPENTIN 300 MG CAPSULE PO SCH ×2 (10:19→22:45)
[2022-06-25] MEDS: NICOTINE 14 MG/24 HOURS TOPICAL PATCH TD SCH (10:20)
[2022-06-25 15:09] LABS: HEMATOCRIT 32.1 % (35.4-49); HEMOGLOBIN 10.6 GM/dL (11.7-16.9); MCH 25.4 pg (25.7-33.7); MCHC 33.1 g/dl (32.0-35.9); MEAN CELL VOLUME 76.7 fl (80-96); MEAN PLT VOLUME 9.2 fl (7.5-11.1); PLATELET COUNT 222 10^3/uL (134-434); RBC 4.19 M/mm3 (4.00-5.60); RDW 15.8 % (11.9-15.9); WHITE BLOOD COUNT 3.8 K/mm3 (4.0-10.0)
[2022-06-25 15:40] LABS: POTASSIUM 4.2 mmol/L (3.5-5.1)
[2022-06-25 15:43] LABS: ALBUMIN 3.5 g/dl (3.4-5.0); BLOOD UREA NITROGEN 16.6 mg/dL (7-18)
[2022-06-25 15:46] LABS: CREATININE 0.7 mg/dL (0.55-1.3)
[2022-06-25 15:47] LABS: BILIRUBIN,TOTAL 0.4 mg/dL (0.2-1)
[2022-06-25 15:48] LABS: TOT PROT 7.6 g/dl (6.4-8.2)
[2022-06-25 16:50] LABS: HIV INTERPRETATION NEGATIVE (NEGATIVE)
[2022-06-25] MEDS: BISMUTH SUBSALICYLATE 524 MG/30 ML PO PRN (20:12)
[2022-06-25] MEDS: IBUPROFEN 600 MG TABLET (FP) PO PRN (20:12)
[2022-06-25] MEDS: THIAMINE HCL 100 MG TABLET (FP) PO SCH (22:45)
[2022-06-25] MEDS: MELATONIN 5 MG TABLETS PO SCH (22:45)
[2022-06-25] MEDS: LACTULOSE 20 GM/30 ML UDC (FOR ORAL USE ONLY) PO SCH (22:46)
[2022-06-26] MEDS: LACTULOSE 20 GM/30 ML UDC (FOR ORAL USE ONLY) PO SCH ×3 (05:27→21:11)
[2022-06-26] MEDS: hydrOXYzine PAMOATE 25 MG CAPSULE (FP) PO PRN (05:27)
[2022-06-26] MEDS ORDERED: methaDONE HCL 10 MG TABLET (FOR DETOX USE ONLY) PO ONE (10:00)
[2022-06-26] MEDS: GABAPENTIN 300 MG CAPSULE PO SCH ×2 (10:09→21:11)
[2022-06-26] MEDS: PRENATAL VITAMINS W/ FOLIC ACID TABLET (FP) PO SCH (10:09)
[2022-06-26] MEDS: NICOTINE 14 MG/24 HOURS TOPICAL PATCH TD SCH (10:10)
[2022-06-26] MEDS: MELATONIN 5 MG TABLETS PO SCH (21:11)
[2022-06-26] MEDS: IBUPROFEN 600 MG TABLET (FP) PO PRN (21:11)
[2022-06-26] MEDS: THIAMINE HCL 100 MG TABLET (FP) PO SCH (21:11)
[2022-06-27] MEDS: LACTULOSE 20 GM/30 ML UDC (FOR ORAL USE ONLY) PO SCH ×2 (05:35→13:34)
[2022-06-27 08:59] VITALS: RESP 18
[2022-06-27] MEDS: BISMUTH SUBSALICYLATE 524 MG/30 ML PO PRN (09:08)
[2022-06-27] MEDS: GABAPENTIN 300 MG CAPSULE PO SCH (10:17)
[2022-06-27] MEDS: PRENATAL VITAMINS W/ FOLIC ACID TABLET (FP) PO SCH (10:18)
[2022-06-27] MEDS: NICOTINE 14 MG/24 HOURS TOPICAL PATCH TD SCH (10:18)
[2022-06-27 17:33] VITALS: BP 104/56; PULSE 64; TEMP 97.3
[2022-06-28] MEDS ORDERED: methaDONE HCL 10 MG TABLET (FOR DETOX USE ONLY) PO ONE (10:00)
== END 2022-06-27 19:03 | disposition left against medical advice (07) | DRG 894 ==
LOC: YASAS 12:06 → Y3N 15:40
PROVIDERS: ADMIT Allergy & Immunology; ATTEND Surgery
PROC: HZ2ZZZZ Detoxification Services for Substance Abuse Treatment (ICD-10-PCS; principal; 2022-06-24)
DX: F11.23 Opioid dependence with withdrawal (principal); F14.20 Cocaine dependence, uncomplicated; F12.20 Cannabis dependence, uncomplicated; F17.210 Nicotine dependence, cigarettes, uncomplicated; M54.50 Low back pain, unspecified; G89.29 Other chronic pain; R79.89 Other specified abnormal findings of blood chemistry; Z86.19 Personal history of other infectious and parasitic diseases; Z99.89 Dependence on other enabling machines and devices
CPT/HCPCS: 36415; 80053; 82140; 85027; 86593; 86780; 86803; 87389; 87522; 87811; 93005; 93010; C9803-CS; U0003; U0005

== ENCOUNTER 2023-03-30 13:01 | Inpatient (IN) | payer OTHER ==
[2023-03-30 13:57] VITALS: BMI 28.2
[2023-03-30] MEDS ORDERED: BISMUTH SUBSALICYLATE 262 MG/15 ML BTL PO PRN (14:46)
[2023-03-30] MEDS ORDERED: MAG HYDROX/AL HYDROX/SIMETH 30 ML UNIT-DOSE CUP PO PRN (14:46)
[2023-03-30] MEDS ORDERED: BENZONATATE 200 MG CAPSULE PO PRN (14:46)
[2023-03-30] MEDS ORDERED: NICOTINE POLACRILEX 2 MG GUM BUC PRN (14:46)
[2023-03-30] MEDS ORDERED: LOPERAMIDE HCL 2 MG CAPSULE PO PRN (14:46)
[2023-03-30] MEDS ORDERED: BENZOCAINE/MENTHOL (CHLORASEPTIC ) LOZENGE MM PRN (14:46)
[2023-03-30] MEDS ORDERED: POLYETHYLENE GLYCOL (HEALTHYLAX) 3350 17 GM PACKET PO PRN (14:46)
[2023-03-30] MEDS ORDERED: ACETAMINOPHEN 325 MG TABLET (FP) PO PRN (14:46)
[2023-03-30] MEDS ORDERED: DICYCLOMINE HCL 10 MG CAPSULE PO PRN (14:46)
[2023-03-30] MEDS ORDERED: NALOXONE HCL (KLOXXADO) 8 MG SPRAY NS PRN (14:46)
[2023-03-30] MEDS ORDERED: MAGNESIUM HYDROX 2400MG/30ML ORAL SUSPENSION 30 ML CUP PO PRN (14:46)
[2023-03-30] MEDS ORDERED: guaiFENesin 600 MG TABLET.ER (FP) PO PRN (14:46)
[2023-03-30] MEDS ORDERED: NALOXONE HCL 0.4 MG/ML VIAL IM PRN (14:46)
[2023-03-30] MEDS ORDERED: methaDONE HCL 10 MG TABLET (FOR DETOX USE ONLY) ONE (15:07)
[2023-03-30] MEDS: methaDONE HCL 10 MG TABLET (FOR DETOX USE ONLY) PO ONE (15:14)
[2023-03-30] MEDS ORDERED: ALBUTEROL SO4 HFA INHALER IH ONE (17:05)
[2023-03-30] MEDS: IBUPROFEN 600 MG TABLET (FP) PO PRN (17:07)
[2023-03-30] MEDS: METHOCARBAMOL 500 MG TABLET PO PRN (17:07)
[2023-03-30] MEDS: THIAMINE HCL 100 MG TABLET (FP) PO SCH (22:05)
[2023-03-30] MEDS: MELATONIN 5 MG TABLETS PO SCH (22:05)
[2023-03-31] MEDS: IBUPROFEN 400 MG TABLET (FP) PO PRN (06:41)
[2023-03-31] MEDS ORDERED: ALBUTEROL SO4 HFA INHALER IH PRN (08:01)
[2023-03-31] MEDS: FERROUS SO4 325 MG TABLET (FP) PO SCH (09:16)
[2023-03-31] MEDS: SPIRONOLACTONE 25 MG TABLET PO SCH (09:16)
[2023-03-31] MEDS: PRENATAL VITAMINS W/ FOLIC ACID TABLET (FP) PO SCH (09:16)
[2023-03-31 10:46] LABS: HEMATOCRIT 38.5 % (35.4-49); HEMOGLOBIN 12.6 GM/dL (11.7-16.9); MCH 29.2 pg (25.7-33.7); MCHC 32.7 g/dl (32.0-35.9); MEAN CELL VOLUME 89.4 fl (80-96); MEAN PLT VOLUME 8.2 fl (7.5-11.1); PLATELET COUNT 268 10^3/uL (134-434); RDW 14.9 % (11.9-15.9)
[2023-03-31 11:25] LABS: CHLORIDE 102 mmol/L (98-107); POTASSIUM 3.9 mmol/L (3.5-5.1); SODIUM 137 mmol/L (136-145)
[2023-03-31 11:33] LABS: CALCIUM 9.1 mg/dL (8.5-10.1)
[2023-03-31 11:34] LABS: ALBUMIN 3.6 g/dl (3.4-5.0); ANION GAP 7 mmol/L (4-13); BLOOD UREA NITROGEN 15.3 mg/dL (7-18); CO2 27 mmol/L (21-32); GLUCOSE,RANDOM 110 mg/dL (74-106)
[2023-03-31 11:36] LABS: CREATININE 0.6 mg/dL (0.55-1.3); SGOT/AST 24 U/L (15-37); SGPT/ALT 18 U/L (13-61)
[2023-03-31 11:38] LABS: BILIRUBIN,TOTAL 0.5 mg/dL (0.2-1); TOT PROT 8.5 g/dl (6.4-8.2)
[2023-03-31 11:39] LABS: ALK PHOS 76 U/L (45-117)
[2023-03-31] MEDS: IBUPROFEN 600 MG TABLET (FP) PO ONE (12:10)
[2023-03-31] MEDS: cloNIDine HCL 0.1 MG TABLET PO PRN (12:30)
[2023-03-31 13:00] VITALS: BP 157/94; PULSE 71; RESP 18; TEMP 97.1
[2023-04-01] MEDS ORDERED: methaDONE HCL 10 MG TABLET (FOR DETOX USE ONLY) PO ONE (10:00)
[2023-04-03] MEDS ORDERED: methaDONE HCL 10 MG TABLET (FOR DETOX USE ONLY) PO ONE (10:00)
== END 2023-03-31 23:55 | disposition short-term general hospital (02) | DRG 897 ==
LOC: YASAS 13:01 → Y6N 15:09
PROVIDERS: ADMIT Allergy & Immunology; ATTEND Surgery
PROC: HZ2ZZZZ Detoxification Services for Substance Abuse Treatment (ICD-10-PCS; principal; 2023-03-30)
DX: F11.23 Opioid dependence with withdrawal (principal); G82.20 Paraplegia, unspecified; Z59.00 Homelessness unspecified; F17.210 Nicotine dependence, cigarettes, uncomplicated; G62.9 Polyneuropathy, unspecified; M54.41 Lumbago with sciatica, right side; M54.42 Lumbago with sciatica, left side; G89.29 Other chronic pain; Z86.73 Personal history of transient ischemic attack (TIA), and cerebral infarction without residual deficits; Z86.19 Personal history of other infectious and parasitic diseases; Z99.89 Dependence on other enabling machines and devices
CPT/HCPCS: 36415; 80053; 80307; 85027; 86593; 86780; 87635

== ENCOUNTER 2023-03-31 13:21 | Inpatient (IN) | payer OTHER ==
[2023-03-31] MEDS ORDERED: LIDOCAINE 4% PATCH TP ONE ×2 (15:42→16:37)
[2023-03-31] MEDS ORDERED: ACETAMINOPHEN 325 MG TABLET (FP) ONE (15:42)
[2023-03-31] MEDS: ACETAMINOPHEN 325 MG TABLET (FP) PO ONE (15:51)
[2023-03-31] MEDS: LIDOCAINE 5% TOPICAL PATCH TP ONE (15:51)
[2023-03-31 17:54] LABS: BASO % 0.4 % (0-2.0); EOS % 2.5 % (0-4.5); HEMATOCRIT 36.1 % (35.4-49); LYMPH % 19.2 % (8-40); MCH 29.6 pg (25.7-33.7); MCHC 33.4 g/dl (32.0-35.9); MEAN CELL VOLUME 88.8 fl (80-96); MEAN PLT VOLUME 7.4 fl (7.5-11.1); MONO % 9.1 % (3.8-10.2); NEUT % 68.8 % (42.8-82.8); PLATELET COUNT 242 10^3/uL (134-434); RBC 4.06 M/mm3 (4.00-5.60); RDW 15.3 % (11.9-15.9); WHITE BLOOD COUNT 7.1 K/mm3 (4.0-10.0)
[2023-03-31] MEDS ORDERED: HYDROmorphone HCl 2 MG/ML VIAL ONE ×2 (17:58→21:47)
[2023-03-31] MEDS ORDERED: KETOROLAC TROMETHAMINE 30 MG/1 ML VIAL ONE (17:58)
[2023-03-31] MEDS: KETOROLAC TROMETHAMINE 30 MG/1 ML VIAL IM ONE (18:03)
[2023-03-31] MEDS: HYDROmorphone HCl 2 MG/ML VIAL IVPUSH ONE ×2 (18:04→21:56)
[2023-03-31 18:18] LABS: POTASSIUM 4.2 mmol/L (3.5-5.1)
[2023-03-31 18:20] LABS: CALCIUM 9.2 mg/dL (8.5-10.1)
[2023-03-31 18:22] LABS: ALBUMIN 3.4 g/dl (3.4-5.0); BLOOD UREA NITROGEN 17.5 mg/dL (7-18)
[2023-03-31 18:25] LABS: CREATININE 0.5 mg/dL (0.55-1.3)
[2023-03-31 18:27] LABS: BILIRUBIN,TOTAL 0.3 mg/dL (0.2-1)
[2023-03-31] MEDS: LIDOCAINE PATCH REMOVAL MC SCH (22:03)
[2023-04-01] MEDS ORDERED: HYDROmorphone HCl 2 MG/ML VIAL ONE (00:29)
[2023-04-01] MEDS ORDERED: DEXAMETHASONE SOD PHOSPHATE 10 MG/1 ML VIAL ONE (00:29)
[2023-04-01] MEDS: DEXAMETHASONE SOD PHOSPHATE 20 MG/5 ML VIAL IVPB ONE (01:24)
[2023-04-01] MEDS: HYDROmorphone HCl 2 MG/ML VIAL IVPUSH ONE (01:25)
[2023-04-01] MEDS: ACETAMINOPHEN 1000 MG/100 ML BAG IVPB ONE (03:39)
[2023-04-01] MEDS: MELATONIN 5 MG TABLETS PO ONE (03:40)
[2023-04-01] MEDS: IBUPROFEN 800 MG/8 ML IJ IVPB ONE (06:56)
[2023-04-01] MEDS: FOLIC ACID 1 MG TABLET (FP) PO SCH (09:11)
[2023-04-01] MEDS: ACETAMINOPHEN 1000 MG/100 ML BAG IVPB PRN (09:12)
[2023-04-01] MEDS: ENOXAPARIN NA (PORCINE) 40 MG/0.4 ML DISP.SYRIN SQ SCH (09:12)
[2023-04-01] MEDS: NICOTINE 7 MG/24 HOURS TOPICAL PATCH TD SCH (09:12)
[2023-04-01] MEDS: methaDONE HCL 40 MG DISPERSABLE TABLET PO SCH (12:28)
[2023-04-01] MEDS: GABAPENTIN 300 MG CAPSULE PO SCH (15:29)
[2023-04-01] MEDS: MELATONIN 5 MG TABLETS PO PRN (21:22)
[2023-04-02] MEDS: MAG HYDROX/AL HYDROX/SIMETH 30 ML UNIT-DOSE CUP PO ONE ×2 (01:14→07:30)
[2023-04-02] MEDS: MAG HYDROX/AL HYDROX/SIMETH -MYLANTA- ORAL SUSPENSION PO ONE (07:11)
[2023-04-02 09:46] LABS: PH,URINE 5.5 (5.0-8.0); URINE APPEARANCE CLEAR; URINE BILIRUBIN NEGATIVE (NEGATIVE); URINE COLOR YELLOW; URINE GLUCOSE (UA) NEGATIVE (NEGATIVE); URINE KETONE NEGATIVE (NEGATIVE); URINE LEUK ESTERASE NEGATIVE (NEGATIVE); URINE NITRITE NEGATIVE (NEGATIVE); URINE PROTEIN NEGATIVE (NEGATIVE); URINE UROBILINOGEN 0.2 mg/dL (0.2-1.0)
[2023-04-02] MEDS ORDERED: ALBUTEROL SO4 HFA INHALER IH PRN (11:00)
[2023-04-02] MEDS ORDERED: MELATONIN 5 MG TABLETS PO PRN (20:55)
[2023-04-02] MEDS: ACETAMINOPHEN 325 MG TABLET (FP) PO PRN (21:28)
[2023-04-02] MEDS: MELATONIN PO PRN (21:28)
[2023-04-03] MEDS: SENNOSIDES 8.6MG TABLET (FP) PO PRN (05:03)
[2023-04-03] MEDS: POLYETHYLENE GLYCOL (HEALTHYLAX) 3350 17 GM PACKET PO SCH (11:13)
[2023-04-03] MEDS: KETOROLAC TROMETHAMINE 15 MG/ML VIAL IVPUSH PRN (17:34)
[2023-04-03] MEDS: PIPERACILLIN/TAZOB 3.375 GM 3.375 GM in DEXTROSE 5%-WATER - 50 ML IVPB SCH (17:35)
[2023-04-03] MEDS: SULFAMETHOXAZOLE/TRIMETHOPRIM 800MG/160MG D.S. TABLET PO SCH (21:36)
[2023-04-03] MEDS: BISACODYL 10 MG SUPP.RECT PR ONE (23:44)
[2023-04-04] MEDS: PANTOPRAZOLE 40 MG TABLET PO SCH (10:01)
[2023-04-04 12:02] LABS: BASO % 0.4 % (0-2.0); EOS % 3.8 % (0-4.5); HEMOGLOBIN 11.7 GM/dL (11.7-16.9); LYMPH % 13.6 % (8-40); MCH 30.2 pg (25.7-33.7); MCHC 33.6 g/dl (32.0-35.9); MEAN CELL VOLUME 89.9 fl (80-96); MEAN PLT VOLUME 8.6 fl (7.5-11.1); MONO % 8.1 % (3.8-10.2); NEUT % 74.1 % (42.8-82.8); PLATELET COUNT 230 10^3/uL (134-434); RBC 3.89 M/mm3 (4.00-5.60); WHITE BLOOD COUNT 8.4 K/mm3 (4.0-10.0)
[2023-04-04 12:08] LABS: POTASSIUM 4.5 mmol/L (3.5-5.1)
[2023-04-04 12:11] LABS: CALCIUM 8.7 mg/dL (8.5-10.1)
[2023-04-04 12:12] LABS: ALBUMIN 3.2 g/dl (3.4-5.0); BLOOD UREA NITROGEN 25.2 mg/dL (7-18)
[2023-04-04 12:15] LABS: CREATININE 0.8 mg/dL (0.55-1.3)
[2023-04-04 12:17] LABS: BILIRUBIN,TOTAL 0.6 mg/dL (0.2-1); TOT PROT 7.6 g/dl (6.4-8.2)
[2023-04-04 18:21] LABS: N-TERMINAL BNP 78.4 pg/ml (5-125)
[2023-04-05] MEDS: LACTATED RINGERS SOLUTION 1,000 ML/1,000 ML INFUS.BAG IV SCH (23:28)
[2023-04-05] MEDS: MAG HYDROX/AL HYDROX/SIMETH 30 ML UNIT-DOSE CUP PO ONE (23:55)
[2023-04-06] MEDS: GLYCERIN 1 RECTAL SUPPOSITORY, ADULT RC ONE (08:26)
[2023-04-06 08:55] LABS: BASO % 0.3 % (0-2.0); EOS % 5.7 % (0-4.5); HEMATOCRIT 32.4 % (35.4-49); LYMPH % 14.8 % (8-40); MCH 30.2 pg (25.7-33.7); MCHC 33.9 g/dl (32.0-35.9); MEAN CELL VOLUME 89.1 fl (80-96); MEAN PLT VOLUME 8.1 fl (7.5-11.1); MONO % 8.3 % (3.8-10.2); NEUT % 70.9 % (42.8-82.8); PLATELET COUNT 214 10^3/uL (134-434); RBC 3.64 M/mm3 (4.00-5.60); WHITE BLOOD COUNT 6.5 K/mm3 (4.0-10.0)
[2023-04-06 09:21] LABS: ALBUMIN 2.8 g/dl (3.4-5.0); BLOOD UREA NITROGEN 26.7 mg/dL (7-18); CALCIUM 8.4 mg/dL (8.5-10.1)
[2023-04-06 09:24] LABS: CREATININE 0.8 mg/dL (0.55-1.3)
[2023-04-06 09:26] LABS: BILIRUBIN,TOTAL 0.3 mg/dL (0.2-1); TOT PROT 7.2 g/dl (6.4-8.2)
[2023-04-06] MEDS ORDERED: MIDAZOLAM HCL 2 MG/2 ML SINGLE DOSE VIAL ONE (12:28)
[2023-04-06] MEDS ORDERED: PROPOFOL 20 ML ONE (12:28)
[2023-04-06] MEDS ORDERED: KETAMINE HCL 200 MG/20 ML VIAL ONE (12:39)
[2023-04-06] MEDS ORDERED: SENNOSIDES 8.6MG TABLET (FP) PO PRN (14:15)
[2023-04-06] MEDS: LACTATED RINGERS SOLUTION 1,000 ML/1,000 ML INFUS.BAG IV SCH (17:06)
[2023-04-06] MEDS: PIPERACILLIN/TAZOB 3.375 GM 3.375 GM in DEXTROSE 5%-WATER - 50 ML IVPB SCH (17:07)
[2023-04-06] MEDS: GABAPENTIN 300 MG CAPSULE PO SCH (21:51)
[2023-04-06] MEDS: SULFAMETHOXAZOLE/TRIMETHOPRIM 800MG/160MG D.S. TABLET PO SCH (21:51)
[2023-04-06] MEDS: LIDOCAINE PATCH REMOVAL MC SCH (21:52)
[2023-04-06] MEDS: MELATONIN PO PRN (21:59)
[2023-04-06] MEDS: KETOROLAC TROMETHAMINE 15 MG/ML VIAL IVPUSH PRN (23:02)
[2023-04-07] MEDS: methaDONE HCL 40 MG DISPERSABLE TABLET PO SCH (05:45)
[2023-04-07] MEDS: ACETAMINOPHEN 1000 MG/100 ML BAG IVPB SCH (06:41)
[2023-04-07 09:56] LABS: BASO % 0.3 % (0-2.0); EOS % 7.3 % (0-4.5); LYMPH % 20.8 % (8-40); MCH 29.5 pg (25.7-33.7); MCHC 33.3 g/dl (32.0-35.9); MEAN CELL VOLUME 88.7 fl (80-96); MEAN PLT VOLUME 8.4 fl (7.5-11.1); NEUT % 61.6 % (42.8-82.8); PLATELET COUNT 226 10^3/uL (134-434); RBC 3.72 M/mm3 (4.00-5.60); RDW 15.1 % (11.9-15.9)
[2023-04-07 10:16] LABS: POTASSIUM 5.1 mmol/L (3.5-5.1)
[2023-04-07] MEDS: ENOXAPARIN NA (PORCINE) 40 MG/0.4 ML DISP.SYRIN SQ SCH (10:20)
[2023-04-07] MEDS: PANTOPRAZOLE 40 MG TABLET PO SCH (10:21)
[2023-04-07] MEDS: FOLIC ACID 1 MG TABLET (FP) PO SCH (10:21)
[2023-04-07] MEDS: POLYETHYLENE GLYCOL (HEALTHYLAX) 3350 17 GM PACKET PO SCH (10:22)
[2023-04-07 10:23] LABS: CALCIUM 8.6 mg/dL (8.5-10.1)
[2023-04-07] MEDS: NICOTINE 7 MG/24 HOURS TOPICAL PATCH TD SCH (10:23)
[2023-04-07 10:24] LABS: ALBUMIN 2.9 g/dl (3.4-5.0); BLOOD UREA NITROGEN 21.2 mg/dL (7-18)
[2023-04-07 10:27] LABS: CREATININE 0.7 mg/dL (0.55-1.3)
[2023-04-07 10:29] LABS: BILIRUBIN,TOTAL 0.3 mg/dL (0.2-1); TOT PROT 7.2 g/dl (6.4-8.2)
[2023-04-07] MEDS: VANCOMYCIN/WATER 1250 MG 1,250 MG/250 ML BAG IVPB SCH (12:19)
[2023-04-07] MEDS: KETOROLAC TROMETHAMINE 15 MG/ML VIAL IM PRN (18:56)
[2023-04-08 09:25] LABS: POTASSIUM 4.9 mmol/L (3.5-5.1)
[2023-04-08 09:26] LABS: BASO % 0.8 % (0-2.0); EOS % 10.7 % (0-4.5); HEMATOCRIT 33.9 % (35.4-49); HEMOGLOBIN 11.2 GM/dL (11.7-16.9); LYMPH % 26.6 % (8-40); MCH 29.6 pg (25.7-33.7); MCHC 33.2 g/dl (32.0-35.9); MEAN CELL VOLUME 89.3 fl (80-96); MEAN PLT VOLUME 8.9 fl (7.5-11.1); MONO % 11.1 % (3.8-10.2); NEUT % 50.8 % (42.8-82.8); PLATELET COUNT 221 10^3/uL (134-434); RDW 14.7 % (11.9-15.9); WHITE BLOOD COUNT 4.1 K/mm3 (4.0-10.0)
[2023-04-08 09:38] LABS: CREATININE 0.6 mg/dL (0.55-1.3)
[2023-04-08 09:40] LABS: CALCIUM 9.4 mg/dL (8.5-10.1)
[2023-04-08 09:41] LABS: ALBUMIN 2.7 g/dl (3.4-5.0)
[2023-04-08 09:42] LABS: BILIRUBIN,TOTAL 0.3 mg/dL (0.2-1); BLOOD UREA NITROGEN 21.2 mg/dL (7-18); TOT PROT 7.1 g/dl (6.4-8.2)
[2023-04-08] MEDS ORDERED: VANCOMYCIN/WATER 1250 MG 1,250 MG/250 ML BAG IVPB SCH (11:00)
[2023-04-08] MEDS: VANCOMYCIN PREMIX 1.5 GM 1,500 MG/300 ML BAG IVPB SCH (12:25)
[2023-04-08] MEDS: BACLOFEN 10 MG TABLET (FP) PO SCH (13:33)
[2023-04-08] MEDS ORDERED: MELATONIN 5 MG TABLETS ONE (21:19)
[2023-04-08] MEDS: BISACODYL 10 MG SUPP.RECT PR ONE (23:35)
[2023-04-09] MEDS: CLINDAMYCIN HCL 150 MG CAPSULE (FP) PO SCH (14:38)
[2023-04-10 08:29] LABS: BASO % 0.7 % (0-2.0); EOS % 10.2 % (0-4.5); HEMATOCRIT 32.9 % (35.4-49); HEMOGLOBIN 11.2 GM/dL (11.7-16.9); LYMPH % 28.9 % (8-40); MCH 30.2 pg (25.7-33.7); MCHC 34.1 g/dl (32.0-35.9); MEAN CELL VOLUME 88.5 fl (80-96); MEAN PLT VOLUME 8.9 fl (7.5-11.1); MONO % 12.5 % (3.8-10.2); NEUT % 47.7 % (42.8-82.8); PLATELET COUNT 221 10^3/uL (134-434); RBC 3.71 M/mm3 (4.00-5.60); RDW 14.8 % (11.9-15.9)
[2023-04-10 08:40] LABS: POTASSIUM 4.9 mmol/L (3.5-5.1)
[2023-04-10 08:45] LABS: CALCIUM 8.9 mg/dL (8.5-10.1)
[2023-04-10 08:46] LABS: ALBUMIN 2.8 g/dl (3.4-5.0); BLOOD UREA NITROGEN 32.4 mg/dL (7-18)
[2023-04-10 08:49] LABS: CREATININE 0.7 mg/dL (0.55-1.3)
[2023-04-10 08:50] LABS: BILIRUBIN,TOTAL 0.3 mg/dL (0.2-1); TOT PROT 7.1 g/dl (6.4-8.2)
[2023-04-10] MEDS ORDERED: REGADENOSON 0.4 MG/5 ML PRE-FILLED SYRINGE IVPUSH ONE (09:33)
[2023-04-10] MEDS: REGADENOSON 0.4 MG/5 ML PRE-FILLED SYRINGE IVPUSH ONE (11:15)
[2023-04-11 10:00] LABS: BASO % 0.8 % (0-2.0); EOS % 6.9 % (0-4.5); HEMATOCRIT 36.5 % (35.4-49); HEMOGLOBIN 12.4 GM/dL (11.7-16.9); LYMPH % 20.5 % (8-40); MCHC 33.9 g/dl (32.0-35.9); MEAN CELL VOLUME 88.6 fl (80-96); MEAN PLT VOLUME 8.6 fl (7.5-11.1); MONO % 7.9 % (3.8-10.2); NEUT % 63.9 % (42.8-82.8); PLATELET COUNT 253 10^3/uL (134-434); RBC 4.12 M/mm3 (4.00-5.60); RDW 15.1 % (11.9-15.9); WHITE BLOOD COUNT 4.9 K/mm3 (4.0-10.0)
[2023-04-11 10:28] LABS: POTASSIUM 4.4 mmol/L (3.5-5.1)
[2023-04-11 10:39] LABS: CALCIUM 9.1 mg/dL (8.5-10.1)
[2023-04-11 10:42] LABS: BILIRUBIN,TOTAL 0.3 mg/dL (0.2-1); CREATININE 0.7 mg/dL (0.55-1.3)
[2023-04-11 10:43] LABS: PHOSPHOROUS 3.9 mg/dL (2.5-4.9); TOT PROT 7.9 g/dl (6.4-8.2)
[2023-04-11 10:54] LABS: MAGNESIUM 2.2 mg/dL (1.8-2.4)
[2023-04-11 10:56] LABS: BLOOD UREA NITROGEN 24.4 mg/dL (7-18)
[2023-04-12] MEDS: KETOROLAC TROMETHAMINE 15 MG/ML VIAL IVPUSH PRN (06:14)
[2023-04-12 08:22] LABS: BASO % 0.7 % (0-2.0); EOS % 9.7 % (0-4.5); HEMATOCRIT 33.4 % (35.4-49); LYMPH % 30.2 % (8-40); MCH 29.4 pg (25.7-33.7); MCHC 33.1 g/dl (32.0-35.9); MEAN PLT VOLUME 8.6 fl (7.5-11.1); MONO % 11.8 % (3.8-10.2); NEUT % 47.6 % (42.8-82.8); PLATELET COUNT 214 10^3/uL (134-434); RBC 3.75 M/mm3 (4.00-5.60); RDW 14.8 % (11.9-15.9); WHITE BLOOD COUNT 3.8 K/mm3 (4.0-10.0)
[2023-04-12 09:17] LABS: POTASSIUM 4.4 mmol/L (3.5-5.1)
[2023-04-12 09:24] LABS: ALBUMIN 2.8 g/dl (3.4-5.0); BLOOD UREA NITROGEN 26.1 mg/dL (7-18); CALCIUM 8.7 mg/dL (8.5-10.1); MAGNESIUM 2.1 mg/dL (1.8-2.4)
[2023-04-12 09:27] LABS: CREATININE 0.6 mg/dL (0.55-1.3)
[2023-04-12 09:28] LABS: PHOSPHOROUS 4.3 mg/dL (2.5-4.9)
[2023-04-12 09:29] LABS: BILIRUBIN,TOTAL 0.4 mg/dL (0.2-1); TOT PROT 6.7 g/dl (6.4-8.2)
[2023-04-13 10:11] LABS: BASO % 0.8 % (0-2.0); EOS % 9.1 % (0-4.5); HEMATOCRIT 35.2 % (35.4-49); HEMOGLOBIN 11.4 GM/dL (11.7-16.9); LYMPH % 30.6 % (8-40); MCHC 32.4 g/dl (32.0-35.9); MEAN CELL VOLUME 89.6 fl (80-96); MEAN PLT VOLUME 8.9 fl (7.5-11.1); MONO % 9.8 % (3.8-10.2); NEUT % 49.7 % (42.8-82.8); PLATELET COUNT 221 10^3/uL (134-434); RBC 3.92 M/mm3 (4.00-5.60); RDW 14.7 % (11.9-15.9); WHITE BLOOD COUNT 3.7 K/mm3 (4.0-10.0)
[2023-04-13 10:39] LABS: POTASSIUM 4.3 mmol/L (3.5-5.1)
[2023-04-13 10:42] LABS: CALCIUM 8.8 mg/dL (8.5-10.1)
[2023-04-13 10:43] LABS: BLOOD UREA NITROGEN 25.2 mg/dL (7-18); MAGNESIUM 1.9 mg/dL (1.8-2.4)
[2023-04-13 10:46] LABS: CREATININE 0.7 mg/dL (0.55-1.3)
[2023-04-13 10:47] LABS: BILIRUBIN,TOTAL 0.3 mg/dL (0.2-1); TOT PROT 7.3 g/dl (6.4-8.2)
[2023-04-14] MEDS: methaDONE HCL 40 MG DISPERSABLE TABLET PO SCH (06:54)
[2023-04-14 08:58] LABS: BASO % 0.5 % (0-2.0); EOS % 7.9 % (0-4.5); HEMATOCRIT 32.9 % (35.4-49); HEMOGLOBIN 11.3 GM/dL (11.7-16.9); LYMPH % 24.2 % (8-40); MCH 30.2 pg (25.7-33.7); MCHC 34.4 g/dl (32.0-35.9); MEAN CELL VOLUME 87.9 fl (80-96); MEAN PLT VOLUME 8.6 fl (7.5-11.1); MONO % 10.6 % (3.8-10.2); NEUT % 56.8 % (42.8-82.8); PLATELET COUNT 224 10^3/uL (134-434); RBC 3.75 M/mm3 (4.00-5.60); RDW 14.8 % (11.9-15.9); WHITE BLOOD COUNT 3.9 K/mm3 (4.0-10.0)
[2023-04-14 09:26] LABS: POTASSIUM 4.3 mmol/L (3.5-5.1)
[2023-04-14 09:32] LABS: ALBUMIN 2.9 g/dl (3.4-5.0)
[2023-04-14 09:33] LABS: BLOOD UREA NITROGEN 23.3 mg/dL (7-18); MAGNESIUM 2.1 mg/dL (1.8-2.4)
[2023-04-14 09:36] LABS: CREATININE 0.5 mg/dL (0.55-1.3); PHOSPHOROUS 3.9 mg/dL (2.5-4.9)
[2023-04-14 09:37] LABS: BILIRUBIN,TOTAL 0.3 mg/dL (0.2-1); TOT PROT 7.3 g/dl (6.4-8.2)
[2023-04-15 08:18] LABS: BASO % 0.6 % (0-2.0); HEMATOCRIT 35.9 % (35.4-49); HEMOGLOBIN 11.8 GM/dL (11.7-16.9); LYMPH % 26.1 % (8-40); MCH 29.3 pg (25.7-33.7); MEAN CELL VOLUME 88.9 fl (80-96); MEAN PLT VOLUME 8.2 fl (7.5-11.1); MONO % 9.9 % (3.8-10.2); NEUT % 56.4 % (42.8-82.8); PLATELET COUNT 225 10^3/uL (134-434); RBC 4.04 M/mm3 (4.00-5.60); RDW 14.7 % (11.9-15.9); WHITE BLOOD COUNT 4.4 K/mm3 (4.0-10.0)
[2023-04-15 08:24] LABS: POTASSIUM 4.6 mmol/L (3.5-5.1)
[2023-04-15 08:28] LABS: ALBUMIN 3.2 g/dl (3.4-5.0); CALCIUM 9.4 mg/dL (8.5-10.1)
[2023-04-15 08:32] LABS: PHOSPHOROUS 4.2 mg/dL (2.5-4.9)
[2023-04-15 08:33] LABS: BILIRUBIN,TOTAL 0.4 mg/dL (0.2-1); TOT PROT 7.7 g/dl (6.4-8.2)
[2023-04-15 08:35] LABS: BLOOD UREA NITROGEN 23.5 mg/dL (7-18); CREATININE 0.6 mg/dL (0.55-1.3)
[2023-04-15 10:05] VITALS: BMI 23.8
[2023-04-15] MEDS: ALBUTEROL SO4 HFA INHALER IH PRN (10:36)
[2023-04-17 08:33] LABS: BASO % 0.5 % (0-2.0); EOS % 5.6 % (0-4.5); HEMATOCRIT 34.5 % (35.4-49); HEMOGLOBIN 11.7 GM/dL (11.7-16.9); LYMPH % 19.3 % (8-40); MCH 29.7 pg (25.7-33.7); MCHC 33.9 g/dl (32.0-35.9); MEAN CELL VOLUME 87.8 fl (80-96); MEAN PLT VOLUME 8.4 fl (7.5-11.1); MONO % 8.1 % (3.8-10.2); NEUT % 66.5 % (42.8-82.8); PLATELET COUNT 216 10^3/uL (134-434); RBC 3.93 M/mm3 (4.00-5.60); RDW 14.9 % (11.9-15.9); WHITE BLOOD COUNT 5.5 K/mm3 (4.0-10.0)
[2023-04-17 08:40] LABS: INR 1.13 (0.83-1.09); PROTHROMBIN TIME (PATIENT) 13.1 SEC (9.7-13.0)
[2023-04-17 08:43] LABS: ACTIVATED PTT 29.5 SECONDS (25.2-36.5)
[2023-04-17 08:48] LABS: CALCIUM 9.4 mg/dL (8.5-10.1)
[2023-04-17 08:49] LABS: ALBUMIN 3.1 g/dl (3.4-5.0); BLOOD UREA NITROGEN 29.8 mg/dL (7-18)
[2023-04-17 08:52] LABS: CREATININE 0.7 mg/dL (0.55-1.3); PHOSPHOROUS 3.7 mg/dL (2.5-4.9)
[2023-04-17 08:54] LABS: BILIRUBIN,TOTAL 0.4 mg/dL (0.2-1); TOT PROT 7.7 g/dl (6.4-8.2)
[2023-04-17] MEDS: ENOXAPARIN NA (PORCINE) 40 MG/0.4 ML DISP.SYRIN SQ SCH (16:53)
[2023-04-17] MEDS: IBUPROFEN 400 MG TABLET (FP) PO PRN (21:59)
[2023-04-22] MEDS: methaDONE HCL 10 MG TABLET PO SCH (06:29)
[2023-04-23] MEDS: ASCORBIC ACID 500 MG TABLET (FP) PO SCH (17:48)
[2023-04-23] MEDS: MULTIVITAMINS (DAILY MVI) TABLET (FP) PO SCH (17:48)
[2023-04-23] MEDS: IBUPROFEN 400 MG TABLET (FP) PO PRN (21:47)
[2023-04-24] MEDS: methaDONE HCL 10 MG TABLET PO ONE (06:17)
[2023-04-25 06:09] VITALS: RESP 18
[2023-04-26] MEDS: methaDONE HCL 10 MG TABLET PO SCH (06:51)
[2023-04-26] MEDS: FUROSEMIDE 40 MG TABLET (FP) PO SCH (09:41)
[2023-04-27] MEDS: NAPROXEN 250 MG TABLET PO SCH (09:58)
[2023-04-28] MEDS: methaDONE HCL 10 MG TABLET PO ONE (05:43)
[2023-04-28 09:05] VITALS: BP 136/92; PULSE 61; TEMP 97.3
== END 2023-04-28 14:12 | disposition home or self-care (01) | DRG 603 ==
LOC: JER 13:21 → JERBED 21:42 → J5S 04-01 01:51 → OBSVTOIN 04-06 10:00 → J6S 04-07 14:07
PROVIDERS: ADMIT Internal Medicine; ATTEND Internal Medicine
PROC: 0Y900ZZ Drainage of Right Buttock, Open Approach (ICD-10-PCS; principal; 2023-04-06 10:00)
DX: L02.31 Cutaneous abscess of buttock (principal); S12.000A Unspecified displaced fracture of first cervical vertebra, initial encounter for closed fracture; F11.20 Opioid dependence, uncomplicated; E72.20 Disorder of urea cycle metabolism, unspecified; G95.20 Unspecified cord compression; F10.230 Alcohol dependence with withdrawal, uncomplicated; F14.20 Cocaine dependence, uncomplicated; G82.20 Paraplegia, unspecified; G99.2 Myelopathy in diseases classified elsewhere; M48.02 Spinal stenosis, cervical region; A49.02 Methicillin resistant Staphylococcus aureus infection, unspecified site; F17.210 Nicotine dependence, cigarettes, uncomplicated; G83.9 Paralytic syndrome, unspecified; W19.XXXA Unspecified fall, initial encounter; Y93.9 Activity, unspecified; Y92.89 Other specified places as the place of occurrence of the external cause; Y99.9 Unspecified external cause status
CPT/HCPCS: 36415; 70496-TC; 70498-TC; 72050-TC-FY; 72125-TC; 72141-TC; 74018-TC-FY; 78452-TC; 80053; 80061; 81003; 83036; 83735; 83880; 84100; 84443; 85025; 85610; 85730; 87070; 87186; 87205; 93005; 93010; 93017; 93306-TC; 94760; 97116-GP; 97161-GP; 99285-25; A9502; G0378; J0131; J0475; J2785